=== PATIENT | male | born 1945 | race Caucasian/White ===

== ENCOUNTER → 2016-11-08 | Outpatient (CLI) | payer BC ==
[~2016-11-08] MED LIST: ASPI81TA21 PO; ATOR-24 PO; CALC500C3 PO; CALCTAB5 PO; CHOL100010 PO; DIPH-437 PO; DOCU100C31 PO; GABA-112 PO; ISOS30TA3 PO; METO25TA56 PO; MISCCAP80 PO; MULT-506 PO; NICO14DI18 TD; NITR0.4S UT; OXYC-57 PO; POLY335019 PO; VITACAP26 PO
== END | disposition home or self-care (01) ==
LOC: C.RDSM 08:00
PROVIDERS: ATTEND Physical Medicine & Rehabilitation Sports Medicine
DX: M25.561 Pain in right knee (principal)

== ENCOUNTER → 2017-06-11 | Outpatient (CLI) | payer BC ==
[~2017-06-11] MED LIST changes: -GABA-112 PO
--- NOTE | 2017-06-11 14:21 | DIAGNOSTIC IMAGING REPORT ---
CT SCAN OF THE PARANASAL SINUSES CLINICAL HISTORY: Headache. Sinus pain. COMPARISON STUDY: CT scan of the paranasal sinuses dated 08/24/2013. TECHNIQUE: High-resolution CT scan of the paranasal sinuses is performed. Images are reviewed in the axial, sagittal, and coronal planes. IV contrast was not administered for this examination. A dose lowering technique was utilized adhering to the principles of ALARA. CT DOSE: 660.33 mGy.cm FINDINGS: Maxillary antra: Clear bilaterally. Anterior ethmoid sinuses: Trace mucosal thickening is seen bilaterally. Posterior ethmoid sinuses: Clear. Sphenoid sinuses: Clear. Frontal sinuses: Trace mucosal thickening is seen bilaterally. Ostiomeatal complexes: Patent bilaterally. Frontoethmoidal and sphenoethmoidal recesses: Patent bilaterally. Carotid arteries: The carotid arteries are protuberant but covered. There are no septal attachments. Ethmoid roofs: The ethmoid roofs are symmetric. Nasal turbinates: There is mild rachel bullosa of the middle nasal turbinates. Nasal septum: There is mild leftward deviation of the bony nasal septum. Optic nerves: Covered. Orbits: The bony orbits are intact. Orbital contents are normal in appearance noting bilateral ocular lens implants.. Calvarium: The imaged calvarium is normal in appearance Mastoid air cells: There is a trace right mastoid effusion. The left mastoid air cells are clear. Brain parenchyma: There is age-related involutional change noting moderate subcortical and periventricular microangiopathic disease. There is significant parenchymal abnormality identified in the right temporal lobe with presumed encephalomalacia. There are foci of curvilinear hyperdensity, likely representing laminar necrosis. IMPRESSION: 1. No significant paranasal sinus disease. See detailed discussion above. 2. There is significant parenchymal abnormality identified in the right temporal lobe. 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 Blood is considered unlikely. Correlation with the patient's medical history at any interval imaging studies will be required. If further assessment is warranted MRI would be appropriate. Electronically signed by: Viktor Bundy M.D. 06/11/2017 2:20 PM Dictated Date/Time: 06/11/2017 2:03 PM
== END | disposition home or self-care (01) ==
LOC: C.CTS 13:44
PROVIDERS: ATTEND Student in an Organized Health Care Education/Training Program
DX: J34.89 Other specified disorders of nose and nasal sinuses (principal); R51 Headache

== ENCOUNTER → 2017-07-01 | Outpatient (CLI) | payer BC ==
[2017-07-01 13:31] LABS: BASO % 0.3 %; BASO ABS # 0.02 K/uL (0-0.2); COMPLETE YES; EOS % 1.1 %; HEMATOCRIT 43.3 % (42-52); IG% 0.3 %; LYMPH % 24.4 %; MEAN CORPUSCULAR HEMOGLOBIN 31.8 pg (25-34); MEAN CORPUSCULAR HGB CONC 33.5 g/dl (32-36); NEUT % 64.9 %; PLATELET COUNT 169 K/uL (130-400); RED BLOOD COUNT 4.56 M/uL (4.7-6.1); WHITE BLOOD COUNT 6.98 K/uL (4.8-10.8)
[2017-07-01 13:57] LABS: ALT/SGPT 39 U/L (12-78); AST/SGOT 23 U/L (15-37); BLOOD UREA NITROGEN 18 mg/dl (7-18); BUN/CREATININE RATIO 13.6 (10-20); CARBON DIOXIDE 31 mmol/L (21-32); CHLORIDE 104 mmol/L (98-107); GLUCOSE 77 mg/dl (70-99); POTASSIUM 4.4 mmol/L (3.5-5.1); SODIUM 139 mmol/L (136-145)
[2017-07-01 14:08] LABS: ALB/GLOB RATIO 1.2 (0.9-2); ALKALINE PHOSPHATASE 92 U/L (45-117)
[2017-07-01 14:16] LABS: LYME DISEASE AB IGG NEG (NEG); LYME DISEASE AB IGM NEG (NEG)
== END | disposition home or self-care (01) ==
LOC: C.LABBC 11:18
PROVIDERS: ATTEND Physician Assistant
DX: R90.89 Other abnormal findings on diagnostic imaging of central nervous system (principal)

== ENCOUNTER → 2017-07-08 | Outpatient (CLI) | payer BC ==
[~2017-07-08] MED LIST changes: +OPTIRAY 320 IV PRN
--- NOTE | 2017-07-08 10:50 | DIAGNOSTIC IMAGING REPORT ---
HEAD COMBO HISTORY: 71 years-old Male R90.[address] of [id number] follow-up study to assess calcification of the right temporal lobe COMPARISON: CT maxillofacial study 06/11/2017, 08/24/2013 TECHNIQUE: Multiple axial CT images of the head were obtained both with and without the use of 95 mL Optiray 320. A dose lowering technique was used consistent with the principals of CHERIE. FINDINGS: There is curvilinear calcification within the right temporal lobe, 2.0 x 2.4 cm with moderate to extensive associated low-attenuation within the right temporal lobe suggesting vasogenic edema. There is no definite associated enhancing mass within this distribution. There is mild cerebral atrophy with ill-defined areas of low attenuation within the periventricular white matter suggesting chronic microvascular ischemic changes. No midline shift, hydrocephalus or territorial ischemia. Bones are intact. The mastoid air cells and middle ear cavities are clear. Soft tissues are unremarkable. Orbits are symmetric. IMPRESSION: 1. Focal curvilinear calcification of the right temporal lobe as above with moderate to extensive associated low attenuation within the right temporal lobe suggests associated vasogenic edema, very suspicious for underlying mass such as a glial neoplasm which does not demonstrate associated significant enhancement. Recommend further evaluation with MRI if clinically able. 2. No midline shift or intracranial hemorrhage identified. 3. Mild atrophy with background chronic microvascular ischemic changes. The above report was generated using voice recognition software. It may contain grammatical, syntax or spelling errors. Electronically signed by: Nomi Nance M.D. 07/08/2017 10:49 AM Dictated Date/Time: 07/08/2017 10:31 AM
== END | disposition home or self-care (01) ==
LOC: C.CTS 10:10
PROVIDERS: ATTEND Physician Assistant
DX: R90.89 Other abnormal findings on diagnostic imaging of central nervous system (principal); G93.89 Other specified disorders of brain

== ENCOUNTER → 2017-09-03 | Outpatient (CLI) | payer BC ==
[~2017-09-03] MED LIST changes: -OPTIRAY 320 IV PRN
== END | disposition home or self-care (01) ==
LOC: C.LAB 13:12
PROVIDERS: ATTEND Urology
DX: N40.1 Benign prostatic hyperplasia with lower urinary tract symptoms (principal)

== ENCOUNTER → 2017-10-03 | Day surgery (SDC) | payer BC ==
--- NOTE | 2017-09-30 11:17 | NUR ---
left generic message for patient to call back.
--- NOTE | 2017-09-30 12:47 | NUR ---
Pt is on 81mg asiprin and celebrex, dr. jacobs and dr. fitzpatrick aware pt will only be holding these medication x 3 days and is ok with it. Pt aware not to take these medications. 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 Pt verbalized understanding. Had Myelogram done before. + hardware in back from a bad surgery in [place], according to patient. Addendum: 10/01/17 at 1139 by Evelyne Escobedo RN pt aware to be npo x 2 hours prior to procedure. okay to take am medication with sip of water.
[~2017-10-03] VITALS: Ht 172.7 cm; Wt 71.5 kg
[2017-10-03] VITALS (8 sets, daily range): BP systolic 92–116; BP diastolic 63–73; PULSE 60–68; TEMP 36.8–36.9; O2SAT 96–100; Ht 172.7 cm; Wt 71.5 kg
[~2017-10-03] MED LIST changes: +ACET-1311 PO; +ACETAMINOPHEN 500 MG TAB PO PRN; +ANT25 PO; +ASCO1CAP3 PO; +ASPI-319 PO; -ASPI81TA21 PO; +CHOL1000 PO; +CLB/200 PO; +DXM/4 PO; +FINA5TAB PO; +MECL1TAB40 PO; +MEDMARIJ PO; +ONDA4TAB9 PO; +OXYC-609 PO; +RANI300T PO; +RXC5 PO; +SENN-61 PO; +TOPI100T20 PO; +TOPI25CA2 PO; +TOPI50TA24 PO; +TURM1CAP4 PO; +TYLOTC500 PO
--- NOTE | 2017-10-03 09:06 | Discharge Instructions ---
Discharge Instructions Procedure Procedure Date: Oct 03, 2017. Reason for visit: Lumbar Stenosis. Discharge Discharge Date: Oct 03, 2017. Discharge Diagnosis: Lumbar stenosis. Difficulty with ambulation Instructions Activity Recommendations: 1 Day-May resume regular activity, 48 Hours of decreased exertion, 1 Day with no exercise/sex/sports, 1 Day with no driving/ machine use Return to School/Work: limitations (light activity x 48 hours) Recommended Home Diet: Resume Previous Diet Provider Instructions: Fluoroscopic guided lumbar puncture was performed prior to CT myelogram of the lumbar spine. The procedure was well tolerated and without immediate complication. ACTIVITY RECOMMENDATIONS: * Rest today. * Resume regular activity in one day. MEDICATIONS: * May take Tylenol or Ibuprofen as needed for pain. DIET: * Resume previous diet. SPECIAL CARE INSTRUCTIONS: Call your doctor if: * Temperature above 101 degrees F. * Pain not relieved by pain medicine ordered. * Increased drainage or redness from incision. * Notify your doctor with any questions or concerns. Call your doctor or go to the nearest Emergency Department if you experience: * Increased chest pain or shortness of breath. FOLLOW UP VISIT: Follow-up with Referring Physician as scheduled. Allergies Coded Allergies: Lactose Intolerance (GI) (Verified Allergy, Intermediate, GI UPSET, ) Rosuvastatin (Verified Adverse Reaction, Unknown, muscle aches, 10/03/17) [place] Recommendations: Call your doctor if: * Temperature above 101 degrees * Pain not relieved by pain medicine ordered * There is increased drainage or redness from any incision * You have any unanswered questions or concerns. Your Doctors Instructions noted above were prepared by provider Viktor Bundy. Patient Signature Section: Patient Instructions Signature Page Justino Brenna Patient (or Guardian) Signature/Date: I have read and understand the instructions given to me by my caregivers. Caregiver/RN/Doctor Signature/Date: The above-named patient and/or guardian has received patient instructions on this date. + Original Patient Signature Page (only) stays with chart. Please make copy for patient.
--- NOTE | 2017-10-03 09:13 | DIAGNOSTIC IMAGING REPORT ---
FLUOROSCOPIC GUIDED LUMBAR PUNCTURE CLINICAL HISTORY: Lumbar stenosis. Difficulty with ambulation. Injection for CT myelogram. PROCEDURE: The risks, benefits, and alternatives to the procedure is discussed with the patient who voiced understanding. Written informed consent was obtained. The patient was placed prone on the fluoroscopy table. The lower back was prepped and draped in the usual sterile fashion. 1% lidocaine was used for local anesthesia. A 22-gauge spinal needle was initially inserted into the L4 laminectomy space with cerebrospinal fluid return. Injection was attempted and likely epidural. The needle was repositioned to the L3 laminectomy space, and intrathecal positioning was again confirmed by return of cerebrospinal fluid. Approximately 20 cc of Isovue-200 was then injected into the thecal sac under fluoroscopic guidance. The patient tolerated the procedure well. There were no immediate complications. The patient was then transported to CT for CT myelogram and will be observed in the medical treatment unit prior to discharge. Fluoroscopy time: 0.7 minutes. IMPRESSION: Fluoroscopic guided lumbar puncture with injection of iodinated contrast for CT myelogram as above. There were no immediate complications. Electronically signed by: Viktor Bundy M.D. 10/03/2017 9:12 AM Dictated Date/Time: 10/03/2017 9:10 AM
--- NOTE | 2017-10-03 10:10 | DIAGNOSTIC IMAGING REPORT ---
CT MYELOGRAM OF THE LUMBAR SPINE CLINICAL HISTORY: Chronic low back pain. Difficulty with ambulation. Spinal stenosis. COMPARISON STUDY: CT scan of the lumbar spine dated 03/07/2016. TECHNIQUE: Following the intrathecal injection of iodinated contrast, CT myelogram of the lumbar spine is performed from the lower thoracic spine to the sacrum. Images are reviewed in the axial, sagittal, and coronal planes. IV contrast was not utilized. 3-D reformats are created and assessed. Examination is degraded by streak artifact from metallic orthopedic spinal hardware. A dose lowering technique was utilized adhering to the principles of ALARA. CT DOSE: 712.17 mGy.cm FINDINGS: Lumbar spine: The skeletal structures are osteopenic. There is no evidence of acute fracture. Vertebral body height and alignment are maintained throughout the lumbar spine. There is mild to moderate lumbar dextrocurvature centered at L3. Anterior and lateral marginal osteophytes are seen throughout. Again seen are changes from laminectomy from L2 through S1. There has been interval placement of interpedicular screws at these levels. The orthopedic hardware appears intact. There is significant lucency around the interpedicular screws of S1 suggesting loosening. The transverse processes are intact. There is no spondylolysis. No lytic or blastic lesion is seen. Intervertebral discs: There is advanced disc space narrowing with near-complete loss of the disc space at L2-L3, L3-L4, and L4-L5. A small volume of injected contrast is present within the L4-L5 disc space. Moderate disc space narrowing seen at T12-L1 and L1-L2. Minimal disc space narrowing is seen at L5-S1. Spinal cord: The visualized spinal cord is normal in morphology. The conus medullaris terminates at the level of L1. The nerve roots of the cauda equina are normal in morphology. T12-L1: The central canal and neural foramina are patent. L1-L2: There is a posterior disc osteophyte complex. There is no significant central canal stenosis at this level. The minimum AP canal diameter measures 11.5 mm. The neural foramina are patent. L2-L3: The central canal is widely patent. Facet arthropathy and osteophyte formation causes moderate left neural foraminal stenosis. L3-L4: The central canal is widely patent. Facet arthropathy and marginal osteophytes cause moderate to severe left neural foraminal stenosis. The right neural foramen appears clear. A minimal posterior disc osteophyte complex is of no confluence. L4-L5: The central canal is widely patent. Facet arthropathy and marginal osteophytes cause severe left and [id number] right neural foraminal stenosis. L5-S1: The central canal and neural foramina are patent. Sacrum: The partially visualized sacrum and bony pelvis appear intact. Soft tissues: There is postoperative change within the paraspinous soft tissues. Small foci of gas within the posterior soft tissues are likely related to the procedure. There is advanced atherosclerotic calcification of the abdominal aorta. Retroperitoneal structures are normal as imaged. Sigmoid diverticulosis is partially visualized. IMPRESSION: 1. There has been interval placement of interpedicular screws from L2-S1. The orthopedic hardware appears intact. There is lucency around the S1 screws bilaterally suggesting loosening. 2. No acute bony abnormality is identified. 3. The central canal is widely patent throughout the lumbar region. 4. Multilevel neural foraminal stenosis, left greater than right as detailed above. 5. Scoliosis. Dictated: 10/03/2017 9:25 AM Transcribed: 10/03/2017 10:10 AM [facility] Electronically signed by: Viktor Bundy M.D. 10/03/2017 10:58 AM Dictated Date/Time: 10/03/2017 9:25 AM
== END | disposition home or self-care (01) ==
LOC: C.ACU 07:18
PROVIDERS: ATTEND Orthopaedic Surgery Orthopaedic Surgery of the Spine
DX: M48.061 Spinal stenosis, lumbar region without neurogenic claudication (principal)

== ENCOUNTER → 2017-10-17 | Outpatient (CLI) | payer BC ==
[~2017-10-17] MED LIST changes: -ACET-1311 PO; -ACETAMINOPHEN 500 MG TAB PO PRN; -ANT25 PO; -ASCO1CAP3 PO; -ASPI-319 PO; +ASPI81TA21 PO; -CHOL1000 PO; -CLB/200 PO; -DXM/4 PO; -FINA5TAB PO; -MECL1TAB40 PO; -MEDMARIJ PO; -ONDA4TAB9 PO; -OXYC-609 PO; -RANI300T PO; -RXC5 PO; -SENN-61 PO; -TOPI100T20 PO; -TOPI25CA2 PO; -TOPI50TA24 PO; -TURM1CAP4 PO; -TYLOTC500 PO
--- NOTE | 2017-10-17 13:26 | DIAGNOSTIC IMAGING REPORT ---
CT SCAN OF THE THORACIC SPINE WITHOUT IV CONTRAST CLINICAL HISTORY: Thoracic radiculopathy. COMPARISON STUDY: No priors. TECHNIQUE: CT scan of the thoracic spine is performed from the lower cervical spine to the lumbar spine. Images are reviewed in the axial, sagittal, and coronal planes. IV contrast was not administered for this examination. A dose lowering technique was utilized adhering to the principles of ALARA. CT DOSE: 757.14 mGy.cm FINDINGS: The skeletal structures are osteopenic. There is no evidence of fracture or malalignment involving the thoracic spine. Vertebral body height and alignment are maintained. There is mild straightening of the thoracic kyphosis with reversal centered at T9-T10. Small anterior osteophytes are seen throughout. The transverse and spinous processes are intact. There is no lytic or blastic lesion identified. There is moderate to advanced disc space narrowing with endplate sclerosis seen at T7-T8. Moderate disc space narrowing is also seen at C7-T1 and T1-T2. Only mild disc space narrowing is seen at the remaining thoracic levels. Posterior disc osteophyte complexes are seen at T5-T6, T7-T8, T8-T9, T9-T10, T10-T11, and T11-T12. There is no evidence of large disc herniation or high-grade central canal stenosis. Bilateral neural foraminal stenosis is suggested at T10 and T11. No significant neural foraminal stenosis is suggested at the remaining thoracic levels. The paraspinous soft tissues are within normal limits. There are calcified mediastinal lymph nodes. Emphysema is noted. Atelectasis versus scarring is seen at both lung bases. There are scattered calcified granulomas. Cardiac pacemaker leads are noted. IMPRESSION: 1. No acute bony abnormality is seen involving the thoracic spine. 2. Osteopenia and mild spondylotic change as above. 3. There is no evidence of high-grade central canal stenosis involving the thoracic spine. 4. Emphysema. 5. Additional findings as above. Dictated: 10/17/2017 12:30 PM Transcribed: 10/17/2017 1:26 PM [facility] Electronically signed by: Viktor Bundy M.D. 10/17/2017 1:27 PM Dictated Date/Time: 10/17/2017 12:30 PM
== END | disposition home or self-care (01) ==
LOC: C.CTS 12:11
PROVIDERS: ATTEND Orthopaedic Surgery Orthopaedic Surgery of the Spine
DX: M54.14 Radiculopathy, thoracic region (principal); M85.88 Other specified disorders of bone density and structure, other site; J43.9 Emphysema, unspecified

== ENCOUNTER 2017-11-28 08:05 | Inpatient (IN) | payer BC, OTHER ==
[2017-11-10 10:35] VITALS: BMI 24.0
--- NOTE | 2017-11-10 11:11 | PAT Medication Instructions ---
Service Date Nov 10, 2017. Current Home Medication List Acetaminophen (Tylenol), 500 MG PO PRN Ascorbic Acid (Vitamin C), 500 MG PO QAM PRN for RN Aspirin Enteric Coated (Ecotrin Or Generic), 81 MG PO QAM Atorvastatin (Lipitor), 20 MG PO 3XWEEK Calcium Carbonate (Tums), 2 TAB PO PRN Celecoxib (CeleBREX), 200 MG PO NOON Cholecalciferol (Vitamin D3), 1 TAB PO QPM Diphenhydramine-Acetaminophen (Tylenol Pm), 1 TAB PO HS PRN for RN Isosorbide Mononitrate Ext Rel (Imdur Ext Rel), 30 MG PO QAM Meclizine HCl (Meclizine HCl), 1 TAB PO PRN Metoprolol Tartrate (Lopressor) (Lopressor), 25 MG PO BID Multivitamin (Multivitamin), 1 TAB PO QPM Oxycodone/Acetaminophen 5MG/325MG (Percocet 5MG/325MG), 1 TABLET PO Q6H PRN for Pain Polyethylene Glycol 3350 (Miralax), 17 GM PO QPM Probiotic Product (Probiotic), 1 TAB PO QAM Senna (Senokot), 1 TAB PO QPM Topiramate (Topiramate), 50 MG PO QAM Topiramate (Topamax), 100 MG PO QPM Medication Instructions For Your Scheduled Surgery -Contact your surgeon for instructions for: Celecoxib (CeleBREX), 200 MG PO NOON - Hold the following medications the morning of surgery: Probiotic Product (Probiotic), 1 TAB PO QAM Calcium Carbonate (Tums), 2 TAB PO PRN - Take the following medications the morning of surgery with a sip of water: Topiramate (Topiramate), 50 MG PO QAM Isosorbide Mononitrate Ext Rel (Imdur Ext Rel), 30 MG PO QAM Aspirin Enteric Coated (Ecotrin Or Generic), 81 MG PO QAM Atorvastatin (Lipitor), 20 MG PO 3XWEEK Oxycodone/Acetaminophen 5MG/325MG (Percocet 5MG/325MG), 1 TABLET PO Q6H PRN for Pain (if needed, can be taken up to four hours before surgery) Meclizine HCl (Meclizine HCl), 1 TAB PO PRN (if needed) Acetaminophen (Tylenol), 500 MG PO PRN (if needed, can be taken up to four hours before surgery) Metoprolol Tartrate (Lopressor) (Lopressor), 25 MG PO BID - Take the following medications as scheduled the night before surgery: Topiramate (Topamax), 100 MG PO QPM Senna (Senokot), 1 TAB PO QPM Polyethylene Glycol 3350 (Miralax), 17 GM PO QPM Meclizine HCl (Meclizine HCl), 1 TAB PO PRN (if needed) Metoprolol Tartrate (Lopressor) (Lopressor), 25 MG PO BID Multivitamin (Multivitamin), 1 TAB PO QPM Oxycodone/Acetaminophen 5MG/325MG (Percocet 5MG/325MG), 1 TABLET PO Q6H PRN for Pain (if needed) Diphenhydramine-Acetaminophen (Tylenol Pm), 1 TAB PO HS PRN for RN (if needed) Cholecalciferol (Vitamin D3), 1 TAB PO QPM Calcium Carbonate (Tums), 2 TAB PO PRN (if needed) Acetaminophen (Tylenol), 500 MG PO PRN (if needed) Ascorbic Acid (Vitamin C), 500 MG PO QAM PRN for RN (if needed) If you have any questions please call us at [phone] or [phone] or [phone]
[2017-11-10 11:46] LABS: BASO % 0.6 %; BASO ABS # 0.03 K/uL (0-0.2); EOS % 0.7 %; EOS ABS # 0.04 K/uL (0-0.5); HEMATOCRIT 39.5 % (42-52); HEMOGLOBIN 13.6 g/dL (14.0-18.0); IG# 0.01 K/uL (0.00-0.02); LYMPH ABS # 1.51 K/uL (1.2-3.4); MEAN CELL VOLUME 93.6 fL (80-100); MEAN CORPUSCULAR HEMOGLOBIN 32.2 pg (25-34); MEAN CORPUSCULAR HGB CONC 34.4 g/dl (32-36); MEAN PLATELET VOLUME 10.5 fL (7.4-10.4); MONO % 7.6 %; MONO ABS # 0.41 K/uL (0.11-0.59); NEUT % 62.9 %; NEUT ABS # 3.39 K/uL (1.4-6.5); PLATELET COUNT 166 K/uL (130-400); RED CELL DISTRIBUTION WIDTH CV 13.7 % (11.5-14.5); RED CELL DISTRIBUTION WIDTH SD 46.5 fL (36.4-46.3); WHITE BLOOD COUNT 5.39 K/uL (4.8-10.8)
--- NOTE | 2017-11-10 12:30 | DIAGNOSTIC IMAGING REPORT ---
TWO VIEW CHEST CLINICAL HISTORY: Preoperative examination. FINDINGS: PA and lateral chest radiographs are compared to study dated 10/15/2015. Correlation is made with CT scan of the thoracic spine dated 10/17/2017. A 2-lead cardiac pacemaker is unchanged in position and partially obscures the left upper chest. The cardiomediastinal silhouette is unremarkable. There is atherosclerotic calcification of the thoracic aorta. The pulmonary vasculature is noncongested. Enlargement of the the central pulmonary arteries suggests pulmonary artery hypertension. There are calcified mediastinal and hilar lymph nodes. Emphysema and chronic interstitial thickening are similar to previous. Scattered calcified granulomas are again noted. The largest present the right lung base. No airspace consolidation or pleural effusion is identified. There is no pneumothorax. The skeletal structures are osteopenic. Degenerative change is noted in the thoracic spine. Fusion hardware is partially imaged in the upper lumbar region. Cholecystectomy clips are noted. IMPRESSION: Emphysematous change and cardiac pacemaker. No acute cardiopulmonary abnormality is seen. Electronically signed by: Viktor Bundy M.D. 11/10/2017 12:28 PM Dictated Date/Time: 11/10/2017 12:26 PM
[2017-11-10 14:34] LABS: CALCIUM 9.2 mg/dl (8.5-10.1); CREATININE 1.39 mg/dl (0.60-1.40); POTASSIUM 4.4 mmol/L (3.5-5.1)
[2017-11-28] VITALS (8 sets, daily range): BP systolic 111–146; BP diastolic 64–93; PULSE 70–100; TEMP 36.2–36.7; O2SAT 96–100; Ht 172.7 cm; Wt 74.0 kg
[~2017-11-28] VITALS: Ht 172.7 cm; Wt 74.0 kg
[~2017-11-28 08:05] MED LIST changes: +ASCO1CAP3 PO; -CALCTAB5 PO; +CEFAZOLIN 1000MG IV PUSH 7.5 ML IV SCH; +CHOL1000 PO; -CHOL100010 PO; +CLB/200 PO; -DOCU100C31 PO; +LACTATED RINGER'S 1000ML 1,000 ML IV SCH; +MECL1TAB40 PO; -NICO14DI18 TD; -NITR0.4S UT; +SENN-61 PO; +TOPI100T20 PO; +TOPI25CA2 PO; +TYLOTC500 PO; -VITACAP26 PO
[2017-11-28] MEDS ORDERED: MIDAZOLAM HCL 1 MG/ML 2ML VIAL ONE (10:22)
[2017-11-28] MEDS ORDERED: FENTANYL CITRATE INJ 50 MCG/1 ML 2 ML VIAL ONE ×3 (10:22→13:16)
[2017-11-28] MEDS ORDERED: ONDANSETRON INJ 2 MG/ML 2 ML VIAL IV PRN ×2 (10:45→13:45)
[2017-11-28] MEDS ORDERED: ATROPINE SULFATE 0.1 MG/ML 5ML SYR IV PRN (10:45)
[2017-11-28] MEDS ORDERED: LABETALOL HCL IV 5 MG/ML 20ML IV PRN (10:45)
[2017-11-28] MEDS ORDERED: HYDROmorphone INJ 2 MG/ML SYR/VIAL IV PRN (10:45)
--- NOTE | 2017-11-28 10:45 | History & Physical Bridge Note ---
H&P Re-Evaluation Bridge Note: I have examined the patient, reviewed the History & Physical and in the interval since the performance of the History & Physical I have noted the following changes of clinical significance: No changes noted
--- NOTE | 2017-11-28 10:49 | History and Physical ---
History & Physical Date Nov 28, 2017. Chief Complaint Back and leg pain History of Present Illness The patient is a 72 year old male with complaints of back and leg pain Past Medical/Surgical History Medical Problems: (1) Diverticulosis Colon (W/O Ment Of Hemorrhage) (2) Esophageal Reflux (3) Hyperlipidemia Nec/Nos (4) Hypertrophy (Benign) Of Prostate W/O Urinary Obst & Oth Luts (5) Lumbar stenosis with neurogenic claudication (6) Osteoarthros Nos-Ankle (7) Osteoarthros Nos-Unspec (8) Pacemaker (9) Sciatica (10) Syncope Surgical Problems: (1) History of back surgery Additional History Hepatic Disease: No Endocrine Disorder: No Kidney Disease: No Hypertension: Yes Heart Disease: No Bleeding Tendencies: No Infectious Diseases: No Allergies Coded Allergies: Lactose Intolerance (GI) (Verified Allergy, Intermediate, GI UPSET, ) Rosuvastatin (Verified Adverse Reaction, Unknown, muscle aches, 11/28/17) Home Medications Scheduled Acetaminophen (Tylenol), 500 MG PO PRN Aspirin Enteric Coated (Ecotrin Or Generic), 81 MG PO QAM Atorvastatin (Lipitor), 20 MG PO 3XWEEK Calcium Carbonate (Tums), 2 TAB PO PRN Celecoxib (CeleBREX), 200 MG PO NOON Cholecalciferol (Vitamin D3), 1 TAB PO QPM Isosorbide Mononitrate Ext Rel (Imdur Ext Rel), 30 MG PO QAM Meclizine HCl (Meclizine HCl), 1 TAB PO PRN Metoprolol Tartrate (Lopressor) (Lopressor), 25 MG PO BID Multivitamin (Multivitamin), 1 TAB PO QPM Polyethylene Glycol 3350 (Miralax), 17 GM PO QPM Probiotic Product (Probiotic), 1 TAB PO QAM Senna (Senokot), 1 TAB PO QPM Topiramate (Topiramate), 50 MG PO QAM Topiramate (Topamax), 100 MG PO QPM Scheduled PRN Ascorbic Acid (Vitamin C), 500 MG PO QAM PRN for RN Diphenhydramine-Acetaminophen (Tylenol Pm), 1 TAB PO HS PRN for RN Oxycodone/Acetaminophen 5MG/325MG (Percocet 5MG/325MG), 1 TABLET PO Q6H PRN for Pain Physical Examination Skin: warm/dry, no rash Eyes: normal inspection, EOMI, sclerae normal ENT: normal ENT inspection, pharynx normal Head: normocephalic, atraumatic Neck: supple, no adenopathy, trachea midline Respiratory/Chest: lungs clear, normal breath sounds, no respiratory distress Cardiovascular: regular rate, rhythm, no edema, no murmur Abdomen / GI: normal bowel sounds, non tender Back: normal inspection Extremities: normal inspection, normal range of motion Neurologic/Psych: no motor/sensory deficits, alert, normal reflexes, oriented x 3 Diagnosis 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
[2017-11-28] MEDS ORDERED: BACITRACIN 50000 UNIT VIAL ONE (10:55)
[2017-11-28] MEDS ORDERED: BUPIVACAINE/EPINEPHRINE 0.5% MPF 1:200,000 30 ML VIAL ONE (10:55)
[2017-11-28] MEDS ORDERED: HYDROmorphone INJ 2 MG/ML SYR/VIAL ONE ×2 (11:45→13:32)
[2017-11-28] MEDS ORDERED: LIDOCAINE HCL 2% 2 ML VIAL (20MG/ML) ONE (11:47)
[2017-11-28] MEDS ORDERED: DEXAMETHASONE SOD INJ 4 MG/ML VIAL ONE (11:47)
[2017-11-28] MEDS ORDERED: ONDANSETRON INJ 2 MG/ML 2 ML VIAL ONE ×2 (11:47→13:33)
[2017-11-28] MEDS ORDERED: EpHEDrine SULFATE 50MG/5ML SYR ONE ×2 (11:47→13:33)
[2017-11-28] MEDS ORDERED: PROPOFOL IV EMULSION 10 MG/ML 20 ML VIAL IV ONE (11:47)
[2017-11-28] MEDS ORDERED: PHENYLEPHRINE 100MCG/ML 5ML SYR ONE ×2 (11:47→13:33)
[2017-11-28] MEDS ORDERED: FLOSEAL HEMOSTATIC MATRIX 10ML TOP ONE (13:30)
[2017-11-28] MEDS ORDERED: GLYCOPYRROLATE INJ 0.2 MG/ML VIAL ONE (13:33)
[2017-11-28] MEDS ORDERED: NEOSTIGMINE METHYLSULFATE 1 MG/ML 10ML VIAL ONE (13:33)
[2017-11-28] MEDS ORDERED: SODIUM CHLORIDE 0.9% 1000ML 1,000 ML IV SCH (13:33)
--- NOTE | 2017-11-28 13:33 | [facility] Operative Report ---
Operative Report Operative Date Nov 28, 2017. 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 #2 expiration of fusion L2 to S1. #3 posterior spinal fusion L4 5 L5-S1. #4 bilateral SI joint fusions. #5 placement posterior segmental instrumentation L4 to S1 with bilateral iliac bolts. #6 placement of locally harvested morcellized autograft in the posterior lateral gutters. #7 placement infuse collagen sponge combined with Master graft the posterior gutters and bilateral SI joints. Surgeon Dr. Brennan Alberto [facility] Specialist Surgeon(s) Alex Marinelli PA-C Estimated Blood Loss 150mL Findings Findings consistent with diagnosis Specimens Tissue Examination: A. Explanted hardware; lumbar spine Anesthesia Type General Description of Procedure Patient was met with preoperatively case discussed all questions addressed. After informed consent obtained patient was taken to the operative suite underwent intubation and placed in a prone position the Gerard table on top of the Nolan frame. All bony prominences were well-padded the eyes inspected to ensure no external pressure placed upon them. This point the lumbar spine was prepped and draped in the normal sterile fashion. Sharp dissection with the assistance of Bovie cautery was performed onto an exposing the instrumentation from L2 to S1 bilaterally. I then proceeded remove the hardware bilaterally. This obvious loosening of the S1 screws bilaterally. Consistent with a nonunion at this level. All other levels appear well stabilized infuse. Then placed pedicle screws on the right L4 L5 S1 levels and on the left L5 and S1 levels. This included placement of bilateral iliac bolts. Process rods were then locked into position. The transverse processes of L4-L5 sacroiliac and the bilateral SI joints burred out to subcortical bleeding bone. Infuse collagen sponge mass graft locally harvested morcellized autograft was placed in the SI joints and posterior gutters. 15 round PHILLIP drain inserted. Incision was then closed with 1 Vicryl in the fascia 2-0 Vicryl subcutaneous tensely 4-0 Monocryl for final skin closure Steri-Strips sterile dressings placed. Patient with continued PACU stable condition. Please note Alex Marinelli was present at the entire procedure involved in patient positioning complex portions of the surgery and final skin closure. I attest to the content of the Intraoperative Record and any orders documented therein. Any exceptions are noted below.
[2017-11-28] MEDS ORDERED: MAGNESIUM HYDROXIDE SUSP 30 ML UDC PO PRN (13:45)
[2017-11-28] MEDS ORDERED: DO NOT ADMINISTER FLU VACCINE PRN (13:45)
[2017-11-28] MEDS ORDERED: BISACODYL 10 MG SUPP PR PRN (13:45)
[2017-11-28] MEDS ORDERED: ALUMINUM/MAGNESIUM SUSP 30 ML UDC PO PRN (13:45)
[2017-11-28] MEDS ORDERED: METOCLOPRAMIDE HCL INJ 5 MG/ML 2 ML VIAL IV PRN (13:45)
[2017-11-28] MEDS ORDERED: hydrOXYzine HCL 25 MG TAB PO PRN (13:45)
[2017-11-28] MEDS ORDERED: ACETAMINOPHEN IV 100 ML IV PRN (13:45)
[2017-11-28] MEDS ORDERED: LORAZEPAM INJ 0.5 MG in SYRINGE 0 ML IV PRN (13:45)
[2017-11-28] MEDS ORDERED: PROMETHAZINE HCL INJ 12.5 MG in SODIUM CHLORIDE 0.9% 50ML 50 ML IV PRN (13:45)
[2017-11-28] MEDS ORDERED: FAMOTIDINE 20 MG TAB PO PRN (13:45)
[2017-11-28] MEDS ORDERED: SOD PHOSPHATE/SOD BIPHOSPHATE ENEMA 132 ML BTL PR PRN (13:45)
[2017-11-28] MEDS ORDERED: DO NOT ADMINISTER PNEUMOCOCCAL VACCINE PRN (13:45)
[2017-11-28] MEDS ORDERED: LORAZEPAM 0.5 MG TAB PO PRN (13:45)
[2017-11-28] MEDS ORDERED: NALOXONE HCL 0.4 MG/1 ML VIAL/CARP IV PRN ×2 (13:45)
[2017-11-28] MEDS ORDERED: ACETAMINOPHEN 500 MG TAB PO PRN (13:45)
--- NOTE | 2017-11-28 13:55 | DIAGNOSTIC IMAGING REPORT ---
INTRAOPERATIVE RADIOGRAPHS CLINICAL HISTORY: L4-S1 spinal fusion with iliac bolt placement. Fluoroscopy time: 15 seconds. FINDINGS: 4 spot fluoroscopic views of the lumbar spine are presented. There has been laminectomy and posterior fusion from L4 to S1. Interpedicular screws are present at all levels, only on the right at L4. Iliac bolts are in place. The orthopedic hardware appears intact. IMPRESSION: Intraoperative images from L4 -S1 spinal fusion as above. Electronically signed by: Viktor Bundy M.D. 11/28/2017 1:53 PM Dictated Date/Time: 11/28/2017 1:52 PM
[2017-11-28] MEDS ORDERED: HYDROmorphone HCL 0.5MG/ML 50 ML CASSETTE ONE (14:03)
--- NOTE | 2017-11-28 15:08 | Anesthesiology Progress Note ---
Anesthesia Post Op Note Date & Time Nov 28, 2017 at 15:07 Vital Signs Pain Intensity: 2 Vital Signs Past 12 Hours Date Time Temp Pulse Resp B/P (MAP) Pulse Ox O2 Delivery O2 Flow Rate FiO2 11/28/17 14:56 67 17 112/61 100 11/28/17 14:56 36.5 68 17 11/28/17 14:51 70 15 11/28/17 14:51 69 15 108/59 100 11/28/17 14:46 73 15 11/28/17 14:46 72 15 113/59 100 11/28/17 14:41 75 14 113/62 11/28/17 14:41 14 11/28/17 14:37 113/59 11/28/17 14:36 71 16 100 11/28/17 14:36 71 16 11/28/17 14:31 74 14 112/61 100 11/28/17 14:31 74 14 11/28/17 14:26 78 10 11/28/17 14:26 77 10 118/63 100 11/28/17 14:21 75 18 122/65 100 11/28/17 14:21 76 18 11/28/17 14:16 77 12 11/28/17 14:16 77 12 108/65 100 11/28/17 14:11 80 15 118/80 100 11/28/17 14:11 81 15 11/28/17 14:06 83 9 124/62 100 11/28/17 14:06 84 9 11/28/17 14:04 113/68 11/28/17 13:56 36.4 83 16 127/83 99 Oxymask 7 11/28/17 08:42 36.4 70 18 146/93 98 Room Air Notes Mental Status: alert / awake / arousable, participated in evaluation Pt Amnestic to Procedure: Yes Nausea / Vomiting: adequately controlled Pain: adequately controlled Airway Patency, RR, SpO2: stable & adequate BP & HR: stable & adequate Hydration State: stable & adequate Anesthetic Complications: no major complications apparent
[2017-11-28] MEDS: HYDROmorphone HCL 0.5MG/ML 50 ML CASSETTE IV PRN ×2 (15:13→23:14)
[2017-11-28] MEDS: CEFAZOLIN IV 1,000 MG in SYRINGE 0 ML IV SCH (20:03)
[2017-11-28] MEDS: SODIUM CHLORIDE 0.9% 1000ML 1,000 ML IV SCH (20:03)
[2017-11-28] MEDS: TOPIRAMATE 100 MG TAB PO SCH (21:00)
[2017-11-28] MEDS: DOCUSATE SODIUM/SENNA 50/8.6MG TAB PO SCH (21:09)
[2017-11-28] MEDS: METOPROLOL TARTRATE 25 MG TAB PO SCH (21:09)
[2017-11-28] MEDS: SENNA 8.6 MG TAB PO SCH (21:10)
[2017-11-29] VITALS (12 sets, daily range): BP systolic 75–135; BP diastolic 43–79; PULSE 57–94; TEMP 36.4–37.1; O2SAT 93–100
[2017-11-29] MEDS: SODIUM CHLORIDE 0.9% 1000ML 1,000 ML IV SCH ×4 (02:51→22:30)
[2017-11-29] MEDS: CEFAZOLIN IV 1,000 MG in SYRINGE 0 ML IV SCH (02:51)
[2017-11-29] MEDS ORDERED: NURSING VERBAL MED ORDER ONE ×2 (05:00→12:15)
[2017-11-29] MEDS ORDERED: HYDROmorphone INJ 0.5 MG/0.5 ML SYR IV PRN (06:00)
[2017-11-29] MEDS ORDERED: HYDROmorphone INJ 1 MG/ML SYR IV PRN (06:00)
[2017-11-29] MEDS ORDERED: DC PCA ONE (06:00)
[2017-11-29 06:53] LABS: BASO % 0.1 %; BASO ABS # 0.01 K/uL (0-0.2); EOS % 0.2 %; EOS ABS # 0.02 K/uL (0-0.5); HEMATOCRIT 38.4 % (42-52); HEMOGLOBIN 12.6 g/dL (14.0-18.0); IG# 0.02 K/uL (0.00-0.02); LYMPH % 14.4 %; LYMPH ABS # 1.45 K/uL (1.2-3.4); MEAN CELL VOLUME 94.6 fL (80-100); MEAN CORPUSCULAR HGB CONC 32.8 g/dl (32-36); MEAN PLATELET VOLUME 10.9 fL (7.4-10.4); MONO % 8.1 %; MONO ABS # 0.81 K/uL (0.11-0.59); NEUT ABS # 7.75 K/uL (1.4-6.5); PLATELET COUNT 169 K/uL (130-400); RED CELL DISTRIBUTION WIDTH CV 13.7 % (11.5-14.5); RED CELL DISTRIBUTION WIDTH SD 46.9 fL (36.4-46.3); WHITE BLOOD COUNT 10.06 K/uL (4.8-10.8)
[2017-11-29 07:32] LABS: CALCIUM 8.7 mg/dl (8.5-10.1); CREATININE 1.4 mg/dl (0.60-1.40); POTASSIUM 3.9 mmol/L (3.5-5.1)
[2017-11-29] MEDS: ASPIRIN 81 MG ECTAB PO SCH (08:43)
[2017-11-29] MEDS: ISOSORBIDE MONONITRATE 30 MG TABCR PO SCH (08:43)
[2017-11-29] MEDS: TOPIRAMATE 100 MG TAB PO SCH (08:44)
[2017-11-29] MEDS: METOPROLOL TARTRATE 25 MG TAB PO SCH ×2 (08:44→20:47)
[2017-11-29] MEDS: TOPIRAMATE 50 MG TAB PO SCH (08:45)
[2017-11-29] MEDS: OXYCODONE HCL IR 5 MG TAB (IMMEDIATE RELEASE) PO PRN ×3 (08:49→13:16)
--- NOTE | 2017-11-29 10:30 | Progress Note ---
Progress Note Date of Service Nov 29, 2017. Progress Note Back pain is controlled. Leg pain markedly improved. Vital signs stable. On exam is good strength testing. He is in bleeding without difficulty. Assessment status post revision decompression fusion. Plan this time continue physical therapy anticipate home Friday.
[2017-11-29] MEDS: NICOTINE 21 MG/24 HR TDSY TD SCH (11:14)
--- NOTE | 2017-11-29 14:13 | Medical Consult ---
Consultation Date of Consultation: Nov 29, 2017. Attending Physician: Brennan Alberto D.O. Reason for Consultation: Hypotension and syncope History of Present Illness 72 y/o M who is s/p lumbar spinal surgery revision on 11/[address] Alberto. Pt was having a normal morning for himself until around noon when he noted he was nauseated. He then became lightheaded and passed out. Pt was sitting in a chair when this happened and did not fall. Pt's BP was noted to be in the 70s- 80s systolic with HR WNL. Dr. Alberto was called and he ordered IVF at 200cc/hr and medicine c/s. His last BP is high 90s systolic. At this time, pt states he is hungry as his lunch tray was just brought in. He states that he frequently has upset stomach that leads to near syncope "ever since I was a little tike". He states he used to pass out with this periodically but not recently. He has a pacer in place for this reason. He otherwise feels at his usual. Pt denies fever, SOB, chest pain, abd pain, n/v/c /d, LE pain or swelling. He feels he is doing well from a surgical standpoint and is already walking better than prior to surgery. Past Medical/Surgical History Hx of syncope Pacer Hyperlipidemia OA BPH GERD Family History Family history was reviewed; no changes noted. Social History Smoking Status: Former Smoker (quit in 1985) Smokeless Tobacco Use: Yes Alcohol Use: rarely, "I still have a 12 pack of beer in my refrigerator from [place]" Drug Use: none Marital Status: Housing Status: lives with significant other Allergies Coded Allergies: Lactose Intolerance (GI) (Unverified Adverse Reaction, Intermediate, GI UPSET, 11/28/17) Rosuvastatin (Verified Adverse Reaction, Unknown, muscle aches, 11/28/17) Current Inpatient Medications Current Inpatient Medications Medications (Trade) Dose Ordered Sig/Jasper Route Start Time Stop Time Status Last Admin Dose Admin Promethazine HCl 12.5 mg/Sodium Chloride 50.5 ml @ 202 mls/hr Q6H PRN IV 11/28/17 13:45 12/28/17 13:44 Ondansetron HCl (Zofran Inj) 4 mg Q6H PRN IV 11/28/17 13:45 12/28/17 13:44 Metoclopramide HCl (Reglan Inj) 10 mg Q6H PRN IV 11/28/17 13:45 12/28/17 13:44 Lorazepam (Ativan Tab) 0.5 mg Q8H PRN PO 11/28/17 13:45 12/28/17 13:44 Lorazepam 0.5 mg/ Syringe 0.25 ml @ 1 mls/min Q8H PRN IV 11/28/17 13:45 12/28/17 13:44 Pneumococcal Polysaccharide Vaccine 1 ea PRN PRN N/A 11/28/17 13:45 12/28/17 13:44 Influenza Virus Vacc Triv Types A&B 1 ea PRN PRN N/A 11/28/17 13:45 12/28/17 13:44 Polyethylene (Miralax Powder Packet) 17 gm Q6 PO 11/30/17 06:00 12/30/17 05:59 Bisacodyl (Dulcolax Supp) 10 mg DAILY PRN [place] 11/28/17 13:45 12/28/17 13:44 Magnesium Hydroxide (Milk Of Magnesia Susp) 30 ml DAILY PRN PO 11/28/17 13:45 12/28/17 13:44 Hydromorphone HCl (Dilaudid Inj) 0.5 mg Q3H PRN IV 11/29/17 06:00 12/13/17 05:59 Oxycodone HCl (Roxicodone Immediate Rel Tab) 5-10mg prn moderate to sev... Q4H PRN PO 11/29/17 06:00 12/13/17 05:59 11/29/17 13:16 5 MG Acetaminophen (Tylenol Tab) 1,000 mg Q8H PRN PO 11/28/17 13:45 12/28/17 13:44 Acetaminophen 100 ml @ 400 mls/hr Q8H PRN IV 11/28/17 13:45 12/28/17 13:44 Naloxone HCl (Narcan Inj) 0.1 mg Q5M PRN IV 11/28/17 13:45 12/28/17 13:44 Senna/Docusate Sodium (Senokot S Tab) 2 tab HS PO 11/28/17 21:00 3/25/18 20:59 11/28/17 21:09 2 TAB Sodium Biphosphate/ Sodium Phosphate (Fleet Enema) 132 ml ONE PRN [place] 11/28/17 13:45 12/28/17 13:44 Hydroxyzine HCl (Vistaril Tab) 25 mg Q8H PRN PO 11/28/17 13:45 12/28/17 13:44 Al Hydroxide/Mg Hydroxide (Maalox Susp) 30 ml Q6H PRN PO 11/28/17 13:45 12/28/17 13:44 Famotidine (Pepcid Tab) 20 mg Q12 PRN PO 11/28/17 13:45 12/28/17 13:44 Diphenhydramine HCl (Benadryl Cap) 25 mg Q6H PRN PO 11/28/17 13:45 12/28/17 13:44 Aspirin (Ecotrin Tab) 81 mg QAM PO 11/29/17 09:00 12/29/17 08:59 11/29/17 08:43 81 MG Isosorbide Mononitrate (Imdur Ext Rel Tab) 30 mg QAM PO 11/29/17 09:00 12/29/17 08:59 11/29/17 08:43 30 MG Metoprolol Tartrate (Lopressor Tab) 25 mg BID PO 11/28/17 21:00 12/28/17 20:59 11/29/17 08:44 25 MG Senna (Senokot Tab) 8.6 mg QPM PO 11/28/17 21:00 12/28/17 20:59 11/28/17 21:10 8.6 MG Topiramate (Topamax Tab) 100 mg QPM PO 11/28/17 21:00 12/28/17 20:59 11/29/17 08:44 100 MG Topiramate (Topamax Tab) 50 mg QAM PO 11/29/17 09:00 12/29/17 08:59 11/29/17 08:45 50 MG Hydromorphone HCl (Dilaudid Inj) 1 mg Q3H PRN IV 11/29/17 06:00 12/13/17 05:59 Nicotine (Nicoderm Cq 21MG Patch) 1 patch QAM TD 11/30/17 09:00 12/30/17 08:59 11/29/17 11:14 1 PATCH Miscellaneous (Remove Nicoderm Patch) 1 ea HS N/A 11/29/17 21:00 12/29/17 20:59 Sodium Chloride 1,000 ml @ 200 mls/hr Q5H IV 11/29/17 12:30 12/29/17 12:29 11/29/17 12:59 200 MLS/HR Review of Systems Pertinent positives and negatives reviewed in HPI--all others negative Physical Exam Date Time Temp Pulse Resp B/P (MAP) Pulse Ox O2 Delivery O2 Flow Rate FiO2 11/29/17 13:23 36.7 57 16 98 11/29/17 12:13 71 93/61 (72) 95 Room Air 11/29/17 12:04 36.7 69 89/55 (66) 97 Room Air 11/29/17 12:01 64 89/55 (66) 98 Room Air 11/29/17 12:00 62 91/56 (68) 11/29/17 12:00 60 86/48 (61) 11/29/17 11:57 36.7 57 16 83/50 (61) 98 Room Air 75/43 (54) 11/29/17 11:36 36.7 72 16 110/72 (85) 98 Room Air 11/29/17 08:40 36.4 75 16 124/76 (92) 98 Room Air 11/29/17 08:16 Room Air 11/29/17 03:30 36.4 75 16 131/76 (94) 98 Room Air 11/28/17 23:30 Room Air 11/28/17 23:21 36.5 79 16 115/64 (81) 96 Room Air 11/28/17 21:05 88 123/68 (86) 11/28/17 18:20 87 15 118/67 (84) 98 Room Air 11/28/17 17:20 36.7 95 17 113/70 (84) 98 Room Air 11/28/17 17:20 36.4 88 16 119/67 (84) 99 Nasal Cannula 1.0 11/28/17 16:20 36.5 73 16 111/64 (80) 99 Nasal Cannula 1.0 11/28/17 15:50 36.4 100 16 125/64 (84) 100 Nasal Cannula 2.0 11/28/17 15:20 100 Nasal Cannula 3.0 11/28/17 15:20 100 Nasal Cannula 3.0 11/28/17 15:20 36.2 70 14 121/68 (85) 100 Nasal Cannula 3.0 11/28/17 14:56 67 17 112/61 100 11/28/17 14:56 36.5 68 17 11/28/17 14:51 70 15 11/28/17 14:51 69 15 108/59 100 11/28/17 14:46 73 15 11/28/17 14:46 72 15 113/59 100 11/28/17 14:41 75 14 113/62 11/28/17 14:41 14 11/28/17 14:37 113/59 11/28/17 14:36 71 16 100 11/28/17 14:36 71 16 11/28/17 14:31 74 14 112/61 100 11/28/17 14:31 74 14 11/28/17 14:26 78 10 11/28/17 14:26 77 10 118/63 100 11/28/17 14:21 75 18 122/65 100 11/28/17 14:21 76 18 11/28/17 14:16 77 12 11/28/17 14:16 77 12 108/65 100 11/28/17 14:11 80 15 118/80 100 11/28/17 14:11 81 15 11/28/17 14:06 83 9 124/62 100 11/28/17 14:06 84 9 General Appearance: WD/WN, no apparent distress Head: normocephalic, atraumatic Eyes: normal inspection, sclerae normal Respiratory/Chest: normal breath sounds, no respiratory distress Cardiovascular: regular rate, rhythm, no edema Abdomen/GI: non tender, soft Extremities/Musculoskelatal: no calf tenderness, no pedal edema Neurologic/Psych: alert, normal mood/affect, oriented x 3 Skin: normal color, warm/dry Laboratory Results Last 24 Hours Test 11/29/17 06:09 White Blood Count 10.06 K/uL Red Blood Count 4.06 M/uL Hemoglobin 12.6 g/dL Hematocrit 38.4 % Mean Corpuscular Volume 94.6 fL Mean Corpuscular Hemoglobin 31.0 pg Mean Corpuscular Hemoglobin Concent 32.8 g/dl Platelet Count 169 K/uL Mean Platelet Volume 10.9 fL Neutrophils (%) (Auto) 77.0 % Lymphocytes (%) (Auto) 14.4 % Monocytes (%) (Auto) 8.1 % Eosinophils (%) (Auto) 0.2 % Basophils (%) (Auto) 0.1 % Neutrophils # (Auto) 7.75 K/uL Lymphocytes # (Auto) 1.45 K/uL Monocytes # (Auto) 0.81 K/uL Eosinophils # (Auto) 0.02 K/uL Basophils # (Auto) 0.01 K/uL RDW Standard Deviation 46.9 fL RDW Coefficient of Variation 13.7 % Immature Granulocyte % (Auto) 0.2 % Immature Granulocyte # (Auto) 0.02 K/uL Sodium Level 141 mmol/L Potassium Level 3.9 mmol/L Chloride Level 109 mmol/L Carbon Dioxide Level 23 mmol/L Anion Gap 9.0 mmol/L Blood Urea Nitrogen 15 mg/dl Creatinine 1.40 mg/dl Est Creatinine Clear Calc Drug Dose 45.5 ml/min Estimated GFR () 57.4 Estimated GFR (Non- 49.5 BUN/Creatinine Ratio 11.0 Random Glucose 107 mg/dl Calcium Level 8.7 mg/dl Assessment & Plan 72 y/o M who is s/p lumbar spinal surgery revision on 11/[address] Alberto. Pt was having a normal morning for himself until around noon when he noted he was nauseated. He then became lightheaded and passed out. Pt was sitting in a chair when this happened and did not fall. Pt's BP was noted to be in the 70s- 80s systolic with HR WNL. Dr. Alberto was called and he ordered IVF at 200cc/hr and medicine c/s. His last BP is high 90s systolic. Syncope: hx of similar but not recently (usually just pre-syncope) Possibly dehydration in the setting of recent OR Hb WNL Improving s/p IVF Transfer to tele and monitor Pacer interrogation (last was pre-op on 11/24). Follows with Dr. Awad if needed CBC, PRP this AM WNL No hx of DM BPH: monitor, will continue these medications for now with hold parameters Recent spinal surgery: as per ortho Diet and DVT proph as per ortho
[2017-11-29] MEDS: KETOROLAC TROMETHAMINE 15 MG/ML VIAL IV. PRN (18:16)
[2017-11-29] MEDS: SENNA 8.6 MG TAB PO SCH (22:02)
[2017-11-29] MEDS: DOCUSATE SODIUM/SENNA 50/8.6MG TAB PO SCH (22:02)
[2017-11-30] VITALS (10 sets, daily range): BP systolic 114–152; BP diastolic 67–84; PULSE 74–100; TEMP 36.7–37.4; O2SAT 93–99
[2017-11-30] MEDS ORDERED: NURSING VERBAL MED ORDER ONE (03:30)
[2017-11-30] MEDS: SODIUM CHLORIDE 0.9% 1000ML 1,000 ML IV SCH ×3 (03:57→22:45)
[2017-11-30] MEDS: POLYETHYLENE (MIRALAX) 17 GM PACK PO SCH ×4 (05:28→23:48)
[2017-11-30] MEDS: KETOROLAC TROMETHAMINE 15 MG/ML VIAL IV. PRN ×2 (07:39→19:39)
[2017-11-30] MEDS: ISOSORBIDE MONONITRATE 30 MG TABCR PO SCH (07:40)
[2017-11-30] MEDS: ASPIRIN 81 MG ECTAB PO SCH (07:40)
[2017-11-30] MEDS: TOPIRAMATE 50 MG TAB PO SCH (07:43)
[2017-11-30] MEDS: NICOTINE 21 MG/24 HR TDSY TD SCH (09:00)
[2017-11-30] MEDS: METOPROLOL TARTRATE 25 MG TAB PO SCH ×2 (09:51→20:40)
--- NOTE | 2017-11-30 12:36 | Progress Note ---
Progress Note Date of Service Nov 30, 2017. Progress Note Patient's back pain is well-controlled. Vital signs are stable. On exam he appears comfortable. His good strength testing. Assessment status post lumbar decompression and fusion. Plan at this time he is progressing nicely. Appears to be stable. I anticipate discharge home tomorrow. He may transfer to the orthopedic floor when cleared by medicine.
--- NOTE | 2017-11-30 13:03 | Progress Note ---
Subjective Date of Service: Nov 30, 2017. Subjective pt feels back to his usual state, relates that sometimes he has issues with pain meds and has almost passed out before, no issues overnight Review of Systems Constitutional: + weakness, + fatigue, No fever, No chills Respiratory: No cough, No shortness of breath, No dyspnea on exertion Cardiac: No chest pain, No edema Abdomen: No pain, No vomiting, No diarrhea Musculoskeletal: No joint pain, No muscle pain Male : No dysuria, No incontinence Objective Vital Signs Date Time Temp Pulse Resp B/P (MAP) Pulse Ox O2 Delivery O2 Flow Rate FiO2 11/30/17 12:00 37.1 78 20 114/67 (83) 97 Room Air 11/30/17 09:00 37.0 95 22 131/73 (92) 96 Room Air 11/30/17 04:00 94 Room Air 11/30/17 03:18 37.4 93 17 148/80 (102) 94 Room Air 11/30/17 00:42 37.3 100 17 152/84 (106) 94 Room Air 11/30/17 00:01 93 Room Air 11/29/17 20:00 93 Room Air 11/29/17 19:26 37.1 89 18 130/79 (96) 93 Room Air 11/29/17 15:53 36.7 94 20 135/75 (95) 95 Room Air 11/29/17 14:00 36.6 70 16 119/71 (87) 100 Room Air 11/29/17 13:23 36.7 57 16 98 Physical Exam General Appearance: WD/WN, + mild distress Eyes: normal inspection, sclerae normal Respiratory/Chest: chest non-tender, lungs clear Cardiovascular: regular rate, rhythm, no murmur Abdomen: normal bowel sounds, non tender, soft Extremities: no pedal edema, no calf tenderness Neurologic/Psychiatric: alert, oriented x 3 Assessment and Plan 72 y/o M who is s/p lumbar spinal surgery revision on 11/[address] Alberto. became lightheaded and passed out 11/29 while sitting in a chair. Pt states he felt similar in the past while taking pain medicine but did not pass out Syncope Improved s/p IVF Pacer interrogation (last was pre-op on 11/24). Follows with Dr. Awad if needed BPH: monitor, will continue these medications with hold parameters Recent spinal surgery: as per ortho Diet and DVT proph as per ortho
[2017-11-30] MEDS: TOPIRAMATE 100 MG TAB PO SCH (20:40)
[2017-11-30] MEDS: DOCUSATE SODIUM/SENNA 50/8.6MG TAB PO SCH (20:40)
[2017-11-30] MEDS: SENNA 8.6 MG TAB PO SCH (20:41)
[2017-12-01] MEDS: POLYETHYLENE (MIRALAX) 17 GM PACK PO SCH (05:35)
[2017-12-01] MEDS: ASPIRIN 81 MG ECTAB PO SCH (07:30)
[2017-12-01] MEDS: ISOSORBIDE MONONITRATE 30 MG TABCR PO SCH (07:30)
[2017-12-01] MEDS: NICOTINE 21 MG/24 HR TDSY TD SCH (07:33)
[2017-12-01] MEDS: TOPIRAMATE 50 MG TAB PO SCH (07:33)
[2017-12-01] MEDS: METOPROLOL TARTRATE 25 MG TAB PO SCH (07:33)
[2017-12-01] MEDS ORDERED: RXC5 PO (07:36)
--- NOTE | 2017-12-01 07:37 | Discharge Instructions ---
Discharge Instructions Date of Service Dec 01, 2017. Admission Reason for Admission: Lumbar Spinal Stenosis Discharge Discharge Diagnosis / Problem: lumbar stenosis Discharge Goals Goal(s): Improve function Activity Recommendations Activity Limitations: per Instructions/Follow-up section . Instructions / Follow-Up Instructions / Follow-Up ACTIVITY RECOMMENDATIONS: SELF CARE INSTRUCTIONS AFTER THORACIC/LUMBAR FUSIONS 1. You may walk to your tolerance. It is good exercise for your legs and back. Expect some back and intermittent leg aches and pains. 2. You may perform "counter-top" level activities (make a sandwich, yunior with a project, etc.). 3. No bending or lifting of more than 10 pounds or back twisting of any nature (roll like a log when turning in bed). 4. You may ride in a car for 20-30 minutes at a time. No driving until after your first visit with your doctor. 5. Frequent changes of position and restricting sitting to 30 minutes at a time will help limit the amount of back spasms and stiffness you may experience. 6. You may discontinue the use of ambulatory aids (cane, crutches, etc.) once your strength and confidence allow. 7. You may strainer tender the shower and let water strike your incision when you arrive home at least once daily. Do not take a tub bath, sit in a hot tub or go into a swimming pool until after your first recheck in the office. SPECIAL CARE INSTRUCTIONS: VERY IMPORTANT TO READ AND REVIEW A. Your surgical incision has been closed with a cosmetic suture under the skin that will dissolve in about 6 weeks. In 14 days, you can use a pair of clean scissors and cut the suture that is left outside of the skin at the ends of your incision. 1. The small skin tapes can be removed 7 days after surgery if they have not fallen off by that point. 2. You may keep the wound open to air as much as possible to promote healing after post-op day number 5 unless told otherwise by your doctor. 3. If you think the wound looks like it is becoming infected (redness or worsening drainage) and/or you are experiencing fever, chill or worsening back pain and muscle spasms, contact the office so that we may evaluate you as soon as possible. B. Complications are uncommon, but please contact us if you have any signs or symptoms of: 1. wound infection (fever higher than 102.5 degrees F, redness, separation of wound, drainage, or increasing pain from the incision) 2. blood clots in legs (pain, swelling, redness and warmth in legs) 3. urinary tract infection (fever higher than 102.5 degrees F, burning upon urination or increased frequency of urination) 4. nerve problems (inability to walk on your toes or heels, numbness, loss of bowel or bladder control) 5. any other symptoms that concern you C. Please call the office at if you have any concerns or questions about your operation or recovery. D. No smoking! Smoking drastically decreases the chance of a solid fusion. E. Do not take any anti-inflammatory medications (Indocin, Advil, Motrin, Aspirin, Naprosyn, etc.) as these may inhibit the chance of a solid fusion. Tylenol is okay to take for pain. MANAGING PAIN AFTER SPINAL SURGERY 1. Narcotic medication is intended for short-term use and will be provided for surgical pain. Surgical pain usually lasts for a period of 4-6 weeks. Narcotic medication includes Percocet, Vicodin, Darvocet, Tylenol #3 or Lortab. 2. Longer-term pain is more appropriately treated with non-narcotic medication such as Tylenol ES. 3. Muscle spasm is not appropriately treated with narcotics. Muscle relaxers such as Soma, Flexeril or Skelaxin can be used along with Tylenol ES. 4. Remember that we all live with some "aches and pains". This is not unusual or uncommon after an injury or as we get older. a. Back pain is expected and may include muscle spasms for 4 to 6 weeks after surgery. The pain should gradually improve. If the pain worsens for no apparent reason, please contact the office. b. Intermittent leg pain may also be experienced and should not be concerned about unless it worsens for no apparent reason. If so, please contact the office. 5. We will provide appropriate medication within the normal guidelines of their prescribed use. We will also be very cautious and aware of potential abuse and extended duration of patients' medication needs. a. Pain medications are for your comfort and to assist with sleep and rest so that the tissue can heal. They are not provided in order to return to normal activity and should not be used through the day. To do so or worsening pain at night can result from ongoing tissue damage and development of tolerance to the prescribed medicine. 6. Please allow 2-3 days to process refills. Prescriptions will not be mailed but must be picked up at the office. FOLLOW UP VISIT: Keep your scheduled follow-up appointment. Any questions, please call the office at . Current Hospital Diet Patient's current hospital diet: Regular Diet Discharge Diet Recommended Diet: Regular Diet Procedures Procedures Performed: #1 removal of posterior segmental instrumentation L2 to S1. #2 expiration of fusion L2 to S1. #3 posterior spinal fusion L4 5 L5-S1. #4 bilateral SI joint fusions. #5 placement posterior segmental instrumentation L4 to S1 with bilateral iliac bolts. #6 placement of locally harvested morcellized autograft in the posterior lateral gutters. #7 placement infuse collagen sponge combined with Master graft the posterior gutters and bilateral SI joints. Pending Studies Studies pending at discharge: no Medical Emergencies . Who to Call and When: Medical Emergencies: If at any time you feel your situation is an emergency, please call 911 immediately. . Non-Emergent Contact Non-Emergency issues call your: Primary Care Provider . "Provider Documentation" section prepared by Brennan Alberto. . VTE Core Measure Inpt VTE Proph given/why not?: Arminda Cui, [facility]
[2017-12-01 07:38] VITALS: BP 128/76; PULSE 87
[2017-12-01] MEDS: SODIUM CHLORIDE 0.9% 1000ML 1,000 ML IV SCH (07:38)
[2017-12-01 07:59] VITALS: BP 124/84; PULSE 84; TEMP 36.8; O2SAT 98
[2017-12-01 08:00] VITALS: O2SAT 98
--- NOTE | 2017-12-01 08:00 | Anesthesiology Progress Note ---
Anesthesia Post Op Note Date & Time Dec 01, 2017 at 08:00 Vital Signs Pain Intensity: 5.0 Vital Signs Past 12 Hours Date Time Temp Pulse Resp B/P (MAP) Pulse Ox O2 Delivery O2 Flow Rate FiO2 12/01/17 07:38 87 128/76 (93) 11/30/17 23:49 Room Air 11/30/17 23:10 36.7 74 16 129/76 (93) 97 Room Air 11/30/17 20:35 86 136/79 (98) 95 Room Air Notes Mental Status: alert / awake / arousable, participated in evaluation Pt Amnestic to Procedure: Yes Nausea / Vomiting: adequately controlled Pain: adequately controlled Airway Patency, RR, SpO2: stable & adequate BP & HR: stable & adequate Hydration State: stable & adequate Anesthetic Complications: no major complications apparent
[2017-12-01 08:30] VITALS: BP 124/84; PULSE 84; TEMP 36.8; O2SAT 98
--- NOTE | 2017-12-01 08:54 | Discharge Summary ---
Orthopedic Discharge Summary Admission Date/Reason Nov 28, 2017 at 10:30 Lumbar Spinal Stenosis. Discharge Date/Disposition Dec 01, 2017 Home Diagnosis Principal Diagnosis: Lumbar spinal stenosis with nonunion Admission Physical Exam As per Admitting History & Physical. Hospital Course Patient underwent revision decompression and fusion tolerated this well and was taken to the orthopedic floor postoperatively. He did have a vasovagal episode was monitored in the PACU 1 night. He was stable. He's been up in and bleeding well bowels working appropriately pain well controlled. Subsequently discharged home. Discharge orders and instructions found in the chart for further review. Discharge Instructions Please refer to the electronic Patient Visit Report (Discharge Instructions) for additional information.
--- NOTE | 2017-12-01 16:02 | Progress Note ---
Progress Note Date of Service Dec 01, 2017. Progress Note Patient was discharged when i come to see patient this morning
== END 2017-12-01 10:00 | disposition home or self-care (01) | DRG 460 ==
LOC: C.ACU 08:05 → C.3E 10:30 → ENRESERV 14:43 → C.2T 11-29 14:00 → C.3E 11-30 12:56 → ENRESERV 11-30 13:42
PROVIDERS: ADMIT Orthopaedic Surgery Orthopaedic Surgery of the Spine; ATTEND Orthopaedic Surgery Orthopaedic Surgery of the Spine
PROC: 0SP004Z Removal of Internal Fixation Device from Lumbar Vertebral Joint, Open Approach (ICD-10-PCS; principal; 2017-11-28 10:30)
PROC: 0SG3071 Fusion of Lumbosacral Joint with Autologous Tissue Substitute, Posterior Approach, Posterior Column, Open Approach (ICD-10-PCS; principal; 2017-11-28 10:30)
PROC: 0SG0071 Fusion of Lumbar Vertebral Joint with Autologous Tissue Substitute, Posterior Approach, Posterior Column, Open Approach (ICD-10-PCS; principal; 2017-11-28 10:30)
PROC: 0SP304Z Removal of Internal Fixation Device from Lumbosacral Joint, Open Approach (ICD-10-PCS; principal; 2017-11-28 10:30)
PROC: 0SG704Z Fusion of Right Sacroiliac Joint with Internal Fixation Device, Open Approach (ICD-10-PCS; principal; 2017-11-28 10:30)
PROC: 0SG804Z Fusion of Left Sacroiliac Joint with Internal Fixation Device, Open Approach (ICD-10-PCS; principal; 2017-11-28 10:30)
DX: M48.061 Spinal stenosis, lumbar region without neurogenic claudication (principal); M96.0 Pseudarthrosis after fusion or arthrodesis; Z98.1 Arthrodesis status; R55 Syncope and collapse; I10 Essential (primary) hypertension; I25.10 Atherosclerotic heart disease of native coronary artery without angina pectoris; N40.0 Benign prostatic hyperplasia without lower urinary tract symptoms; E78.5 Hyperlipidemia, unspecified; F17.220 Nicotine dependence, chewing tobacco, uncomplicated; I25.2 Old myocardial infarction; Z95.0 Presence of cardiac pacemaker; Z95.5 Presence of coronary angioplasty implant and graft; Z96.698 Presence of other orthopedic joint implants; Z98.890 Other specified postprocedural states; Z79.82 Long term (current) use of aspirin; Z79.899 Other long term (current) drug therapy; E73.9 Lactose intolerance, unspecified; Z88.8 Allergy status to other drugs, medicaments and biological substances

== ENCOUNTER 2018-01-15 19:14 | Emergency (ER) | payer BC, OTHER ==
[~2018-01-15] VITALS: Ht 172.7 cm; Wt 69.5 kg
[~2018-01-15 19:14] MED LIST changes: +ASPI-319 PO; -ASPI81TA21 PO; -CEFAZOLIN 1000MG IV PUSH 7.5 ML IV SCH; -LACTATED RINGER'S 1000ML 1,000 ML IV SCH; +RXC5 PO
[2018-01-15 19:16] VITALS: TEMP 36.7; Ht 172.7 cm; Wt 69.5 kg
[2018-01-15] MEDS ORDERED: SODIUM CHLORIDE 0.9% 500ML 500 ML IV STA (19:33)
[2018-01-15] MEDS ORDERED: ONDANSETRON INJ 2 MG/ML 2 ML VIAL IV STA (19:33)
[2018-01-15] MEDS ORDERED: SODIUM CHLORIDE 0.9% 1000ML 1,000 ML IV STA (19:33)
--- NOTE | 2018-01-15 19:43 | EMERGENCY ROOM VISIT NOTE ---
History Report prepared by Belén: Kristofer Pitts Under the Supervision of: Dr. Kelly Santizo M.D. First contact with patient: 19:21 Chief Complaint: NOSE BLEED (MINOR) Stated Complaint: NOSE BLEED, HEADACHE History of Present Illness The patient is a 72 year old male who presents to the Emergency Room with complaints of intermittent epistaxis beginning last night. He rates his discomfort as a 5/10 in severity. The patient states that last night he started to experience a headache and a chest discomfort. He also notes he had gum pain that radiated into his eyes and forehead. The patient states that he usually takes an Aspirin in the morning, but reports he took a second one at night due to his discomfort. He also reports he used Flonase and an inhaler. He states that he went to bed and woke up around midnight when he noticed he had an episode of epistaxis out of his right nostril. The patient reports that he cleaned up the blood and went back to bed. He reports that he woke up in the morning and noticed there was blood running out of his right nostril again. The patient states that he had mild episodes throughout the day, which would intermittently resolve. He reports that his last episode occurred prior to arrival. The patient states he used an ice pack and pinched his nose to help resolve the episode. He reports he currently feels blood in the back of his throat. He states he has also been experiencing lightheadedness. The patient states that he usually gets nose bleeds sporadically, but reports they have increased in frequency since last night. He reports a history of a myocardial infarction in 2013. The patient states he has two coronary artery stents. He also reports he has a pacemaker. Source of History: patient Onset: last night Position: other (right nostril) Symptom Intensity: 5/10 Quality: other (epistaxis) Timing: intermittent Modifying Factors (Relieving): other (ice pack, pinching nose) Associated Symptoms: + headache, + chest pain Note: Associated symptoms: gum pain, face pain, lightheaded Review of Systems See HPI for pertinent positives & negatives. A total of 10 systems reviewed and were otherwise negative. Past Medical & Surgical Medical Problems: (1) Chronic back pain (2) Diverticulosis Colon (W/O Ment Of Hemorrhage) (3) Esophageal Reflux (4) Hyperlipidemia Nec/Nos (5) Hypertrophy (Benign) Of Prostate W/O Urinary Obst & Oth Luts (6) Lumbar stenosis with neurogenic claudication (7) Osteoarthros Nos-Ankle (8) Osteoarthros Nos-Unspec (9) Pacemaker (10) Sciatica (11) Syncope Surgical Problems: (1) History of back surgery Family History Heart disease Social History Smoking Status: Former Smoker Drug Use: none Marital Status: Housing Status: lives with significant other Current/Historical Medications Scheduled Acetaminophen (Tylenol), 500 MG PO PRN Aspirin Enteric Coated (Ecotrin Or Generic), 81 MG PO QAM Atorvastatin (Lipitor), 20 MG PO 3XWEEK Calcium Carbonate (Tums), 2 TAB PO PRN Cholecalciferol (Vitamin D3), 1 TAB PO QPM Isosorbide Mononitrate Ext Rel (Imdur Ext Rel), 30 MG PO QAM Meclizine HCl (Meclizine HCl), 1 TAB PO PRN Metoprolol Tartrate (Lopressor) (Lopressor), 25 MG PO BID Multivitamin (Multivitamin), 1 TAB PO QPM Polyethylene Glycol 3350 (Miralax), 17 GM PO QPM Probiotic Product (Probiotic), 1 TAB PO QAM Senna (Senokot), 2-3 TAB PO QPM Topiramate (Topiramate), 50 MG PO QAM Topiramate (Topamax), 100 MG PO QPM Scheduled PRN Ascorbic Acid (Vitamin C), 500 MG PO QAM PRN for RN Diphenhydramine-Acetaminophen (Tylenol Pm), 1 TAB PO HS PRN for PRN Ondansetron (Ondansetron HCl), 4 MG PO PRN PRN for Nausea or Vomiting Oxycodone/Acetaminophen 5MG/325MG (Percocet 5MG/325MG), 1 TABLET PO AMPM PRN for Pain Ranitidine Hcl (Zantac), 300 MG PO DAILY PRN for REFLUX Allergies Coded Allergies: Lactose Intolerance (GI) (Unverified Adverse Reaction, Intermediate, GI UPSET, 11/28/17) Rosuvastatin (Verified Adverse Reaction, Unknown, muscle aches, 11/28/17) Physical Exam Vital Signs Date Time Temp Pulse Resp B/P (MAP) Pulse Ox O2 Delivery O2 Flow Rate FiO2 01/15/18 22:40 70 16 147/87 96 01/15/18 21:40 63 16 125/75 99 Room Air 01/15/18 20:51 64 16 147/82 99 Room Air 01/15/18 20:20 60 01/15/18 20:15 64 18 138/81 98 Room Air 01/15/18 19:48 66 138/76 68 136/80 79 127/81 01/15/18 19:16 36.7 83 18 125/76 96 Room Air Physical Exam Vital signs reviewed. General: Well-appearing 72 year old male, in no significant distress. HEENT: No scleral icterus, PERRLA, neck supple. Dried blood in the bilateral nares. Poor visualization otherwise. No active bleeding. Old blood in the posterior oropharynx. Atraumatic. Cardiovascular: Regular rate and rhythm, no extra sounds. Pulmonary: Clear to auscultation bilaterally, normal work of breathing. Abdomen: Soft, nontender, nondistended, positive bowel sounds. Musculoskeletal: Atraumatic, no peripheral edema. Neurologic: Patient awake alert and oriented x 3, full strength in all 4 extremities. Cranial nerves 2 through 12 grossly intact. Skin: Warm, dry, no rash Medical Decision & Procedures ER Provider Diagnostic Interpretation: Radiology results as stated below per my review and radiologist interpretation: HEAD CT NONCONTRAST CT DOSE: 537.48 mGy.cm HISTORY: Right-sided headache. Facial pain. Metastatic. TECHNIQUE: Multiaxial CT images of the head were performed without the use of intravenous contrast. Automated exposure control was utilized for this study. A dose lowering technique was utilized adhering to the principles of ALARA. Comparison: Head CT 07/08/2017. Findings: The paranasal sinuses and mastoid air cells are clear. The calvarium and skull base are intact. Slight progression of the area of calcification within the right temporal lobe. This previous measured 2.4 x 2.0 cm. This currently measures 2.9 x 2.5 cm. There is also mild progression of the surrounding vasogenic edema within the right temporal lobe. This results in slight mass effect along the right lateral ventricle and up to 3 mm of left midline shift which is also slightly progressed. Mild atrophy and microvascular ischemic changes are again noted. No acute infarct or acute hemorrhage identified. A 1.1 cm nodular focus of increased density within the right temporal lobe on image 8 has also slightly progressed but favors calcification rather than hemorrhage. Impression: 1. Slight progression of the area of calcification and surrounding vasogenic edema within the right temporal lobe. This remains highly suspicious for an underlying mass. 2. This results in slight increased mass effect along the right lateral ventricle and up to 3 mm of left midline shift. Electronically signed by: Sal Argueta M.D. 01/15/2018 8:16 PM Dictated Date/Time: 01/15/2018 8:10 PM 11/11/17 CT 1.Linear nodular calcification within the right temporal lobe, increased from the prior study. Hypodensity within the right temporal lobe extending into the right subinsular and right pediatrial white matter, slightly increased compared with the prior study. [place] areas of superimposed enhancement adjacent to the areas of calcification within the right temporal lob lesion. Persistent localized mass effect with effacement of the right temporal sulci and partial effacement of the right temporal horn. The imaging findings are worrisome for a primary brain neoplasm. Neurosurgical consultation is recommended. 2. Global volume loss and findings most commonly associated with chronic small vessel ischemic changes. Intracranial atherosclerotic disease. Additional findings as described above. Laboratory Results 01/15/18 19:40 Red Blood Count 3.82, Mean Corpuscular Volume 89.5, Mean Corpuscular Hemoglobin 29.8, Mean Corpuscular Hemoglobin Concent 33.3, Mean Platelet Volume 10.0, Neutrophils (%) (Auto) 61.0, Lymphocytes (%) (Auto) 27.0, Monocytes (%) (Auto) 9.1, Eosinophils (%) (Auto) 2.4, Basophils (%) (Auto) 0.3, Neutrophils # (Auto) 3.55, Lymphocytes # (Auto) 1.57, Monocytes # (Auto) 0.53, Eosinophils # (Auto) 0.14, Basophils # (Auto) 0.02 01/15/18 19:40 Test 01/15/18 19:40 White Blood Count 5.82 K/uL (4.8-10.8) Red Blood Count 3.82 M/uL (4.7-6.1) Hemoglobin 11.4 g/dL (14.0-18.0) Hematocrit 34.2 % (42-52) Mean Corpuscular Volume 89.5 fL (80-100) Mean Corpuscular Hemoglobin 29.8 pg (25-34) Mean Corpuscular Hemoglobin Concent 33.3 g/dl (32-36) Platelet Count 233 K/uL (130-400) Mean Platelet Volume 10.0 fL (7.4-10.4) Neutrophils (%) (Auto) 61.0 % Lymphocytes (%) (Auto) 27.0 % Monocytes (%) (Auto) 9.1 % Eosinophils (%) (Auto) 2.4 % Basophils (%) (Auto) 0.3 % Neutrophils # (Auto) 3.55 K/uL (1.4-6.5) Lymphocytes # (Auto) 1.57 K/uL (1.2-3.4) Monocytes # (Auto) 0.53 K/uL (0.11-0.59) Eosinophils # (Auto) 0.14 K/uL (0-0.5) Basophils # (Auto) 0.02 K/uL (0-0.2) RDW Standard Deviation 43.5 fL (36.4-46.3) RDW Coefficient of Variation 13.3 % (11.5-14.5) Immature Granulocyte % (Auto) 0.2 % Immature Granulocyte # (Auto) 0.01 K/uL (0.00-0.02) Prothrombin Time 10.4 SECONDS (9.0-12.0) Prothromb Time International Ratio 1.0 (0.9-1.1) Activated Partial Thromboplast Time 26.8 SECONDS (21.0-31.0) Partial Thromboplastin Ratio 1.0 Anion Gap 5.0 mmol/L (3-11) Est Creatinine Clear Calc Drug Dose 41.9 ml/min Estimated GFR () 51.9 Estimated GFR (Non- 44.8 BUN/Creatinine Ratio 11.3 (10-20) Calcium Level 9.3 mg/dl (8.5-10.1) Total Bilirubin 0.2 mg/dl (0.2-1) Direct Bilirubin < 0.1 mg/dl (0-0.2) Aspartate Amino Transf (AST/SGOT) 23 U/L (15-37) Alanine Aminotransferase (ALT/SGPT) 23 U/L (12-78) Alkaline Phosphatase 151 U/L (45-117) Total Protein 7.6 gm/dl (6.4-8.2) Albumin 3.7 gm/dl (3.4-5.0) Laboratory results per my review. Medications Administered Medications (Trade) Dose Ordered Sig/Jasper Route Start Time Stop Time Status Last Admin Dose Admin Sodium Chloride 500 ml @ 999 mls/hr Q31M STAT IV 01/15/18 19:33 01/15/18 20:03 DC 01/15/18 20:00 999 MLS/HR Sodium Chloride 1,000 ml @ 125 mls/hr Q8H STAT IV 01/15/18 19:33 01/15/18 23:12 DC 01/15/18 20:54 125 MLS/HR Ondansetron HCl (Zofran Inj) 4 mg NOW STAT IV 01/15/18 19:33 01/15/18 19:36 DC 01/15/18 20:00 4 MG ECG Per My Interpretation Indication: chest pain Rate (beats per minute): 68 Rhythm: normal sinus Findings: no acute ischemic change, no ectopy, other (No ST elevation) ED Course 1922: Past medical records reviewed. The patient was evaluated in room C05. A complete history and physical examination was performed. 1932: Ordered Zofran Injection 4 mg IV, Sodium Chloride 1000 ml @ 125 mls/hr IV , Sodium Chloride 500 ml @ 999 mls/hr IV. 2048: I reevaluated the patient and updated him on his results. The patient reports he has had work up done on his temporal lobe mass. He was recommended a close follow up with Dr. Wil Forde, but has been cancelling due to his recent back pain and surgery. He has an appointment in February and does not want to make it sooner. 2156: I reevaluated the patient. I discussed findings with the patient. He verbalized agreement of the treatment plan. The patient was discharged home. I will contact case management for follow up with his PCP. Medical Decision Differential diagnosis: Etiologies such as anterior epistaxis, coagulopathy, traumatic injury, fracture , septal hematoma, posterior epistaxis as well as other pathologies were entertained. This pt was evaluated and appeared to be in no distress. IV access was obtained and lab work was drawn. Pt was hydrated with NSS, given IV zofran for nausea. Epistaxis subsided without further intervention. Pt was advised against picking the clots out of the nares or blowing, as he does frequently. Pt c/o CARRAS[place] and CT head was performed. CT reveals right parietal mass with calcification. Pt is aware of this and has been delaying further evaluation with neurosurgery. Previous scan performed as outpt was obtained. He was scheduled to f/u last month but postponed d/t recent back surgery. He seems very resistant to facilitation of a sooner appt with neurosurgery. I have emphasized the importance of the findings. He reiterated how ill his is and that he needs to care for her. I have offered to call his daughter to help communicate the issues at hand but he has declined. Pt was d/c to care of his neighbor. He will fu with PCP this week and return to the ED for worsening of symptoms or any medical concerns. Medication Reconcilliation Current Medication List: was personally reviewed by me Blood Pressure Screening Patient's blood pressure: Normal blood pressure Impression Primary Impression: Epistaxis Additional Impressions: Right temporal lobe mass Chronic headaches Scribe Attestation The scribe's documentation has been prepared under my direction and personally reviewed by me in its entirety. I confirm that the note above accurately reflects all work, treatment, procedures, and medical decision making performed by me. Departure Information Dispostion Home / Self-Care Referrals Peter Menezes MD (PCP) Forms HOME CARE DOCUMENTATION FORM, IMPORTANT VISIT INFORMATION, WORK / SCHOOL INSTRUCTIONS Patient Instructions My [facility] Additional Instructions Diagnosis: Epistaxis, right temporal lobe mass. Please stop taking the aspirin for the next several days. Avoid scratching, rubbing, picking, or blowing your nose. The impregnator and drier your nasal passages the more likely they are to bleed. The following two products are available [id number] at most drug stores/pharmacies: [place] nasal spray or similar generic saline spray to keep the nose moist 3 to 4 times a day or Apply [place] gel 2-3 times daily to the nostrils to keep them moist. If bleeding recurs apply direct pressure for an uninterrupted 20 minutes. On and off pressure is much less effective because it will disturb the clots that are forming. If the bleeding is still a problem after 20 minutes or is so heavy despite the pressure return to the emergency department. Follow-up with your primary care physician in 2 to 3 days for a recheck of your current condition. Case management will contact you tomorrow morning to help arrange follow-up with Dr. Menezes and neurosurgery if needed. Problem Qualifiers
[2018-01-15 19:51] LABS: BASO % 0.3 %; BASO ABS # 0.02 K/uL (0-0.2); EOS % 2.4 %; EOS ABS # 0.14 K/uL (0-0.5); HEMATOCRIT 34.2 % (42-52); HEMOGLOBIN 11.4 g/dL (14.0-18.0); IG# 0.01 K/uL (0.00-0.02); LYMPH ABS # 1.57 K/uL (1.2-3.4); MEAN CELL VOLUME 89.5 fL (80-100); MEAN CORPUSCULAR HEMOGLOBIN 29.8 pg (25-34); MEAN CORPUSCULAR HGB CONC 33.3 g/dl (32-36); MONO % 9.1 %; MONO ABS # 0.53 K/uL (0.11-0.59); NEUT ABS # 3.55 K/uL (1.4-6.5); PLATELET COUNT 233 K/uL (130-400); RED CELL DISTRIBUTION WIDTH CV 13.3 % (11.5-14.5); RED CELL DISTRIBUTION WIDTH SD 43.5 fL (36.4-46.3); WHITE BLOOD COUNT 5.82 K/uL (4.8-10.8)
[2018-01-15 20:01] LABS: PTT PATIENT 26.8 SECONDS (21.0-31.0)
[2018-01-15 20:13] LABS: ALBUMIN 3.7 gm/dl (3.4-5.0); ALT/SGPT 23 U/L (12-78); BLOOD UREA NITROGEN 17 mg/dl (7-18); CALCIUM 9.3 mg/dl (8.5-10.1); CARBON DIOXIDE 26 mmol/L (21-32); CREATININE 1.52 mg/dl (0.60-1.40); GLUCOSE 95 mg/dl (70-99); POTASSIUM 3.7 mmol/L (3.5-5.1); SODIUM 143 mmol/L (136-145)
[2018-01-15] MEDS ORDERED: RANI300T PO (20:15)
[2018-01-15] MEDS ORDERED: ONDA4TAB9 PO (20:15)
[2018-01-15 20:16] LABS: ALKALINE PHOSPHATASE 151 U/L (45-117); AST/SGOT 23 U/L (15-37); TOTAL PROTEIN 7.6 gm/dl (6.4-8.2)
--- NOTE | 2018-01-15 20:18 | DIAGNOSTIC IMAGING REPORT ---
HEAD CT NONCONTRAST CT DOSE: 537.48 mGy.cm HISTORY: Right-sided headache. Facial pain. Metastatic. TECHNIQUE: Multiaxial CT images of the head were performed without the use of intravenous contrast. Automated exposure control was utilized for this study. A dose lowering technique was utilized adhering to the principles of ALARA. Comparison: Head CT 07/08/2017. Findings: The paranasal sinuses and mastoid air cells are clear. The calvarium and skull base are intact. Slight progression of the area of calcification within the right temporal lobe. This previous measured 2.4 x 2.0 cm. This currently measures 2.9 x 2.5 cm. There is also mild progression of the surrounding vasogenic edema within the right temporal lobe. This results in slight mass effect along the right lateral ventricle and up to 3 mm of left midline shift which is also slightly progressed. Mild atrophy and microvascular ischemic changes are again noted. No acute infarct or acute hemorrhage identified. A 1.1 cm nodular focus of increased density within the right temporal lobe on image 8 has also slightly progressed but favors calcification rather than hemorrhage. Impression: 1. Slight progression of the area of calcification and surrounding vasogenic edema within the right temporal lobe. This remains highly suspicious for an underlying mass. 2. This results in slight increased mass effect along the right lateral ventricle and up to 3 mm of left midline shift. Electronically signed by: Sal Argueta M.D. 01/15/2018 8:16 PM Dictated Date/Time: 01/15/2018 8:10 PM
[2018-01-15 22:40] VITALS: BP 147/87; PULSE 70; O2SAT 96
== END 2018-01-15 22:40 | disposition home or self-care (01) ==
LOC: C.EDB 19:16 → C.EDC 22:40
DX: R04.0 Epistaxis (principal); D49.6 Neoplasm of unspecified behavior of brain; R51 Headache; R07.89 Other chest pain; I25.2 Old myocardial infarction; E78.5 Hyperlipidemia, unspecified; K21.9 Gastro-esophageal reflux disease without esophagitis; E73.9 Lactose intolerance, unspecified; Z87.891 Personal history of nicotine dependence; Z79.82 Long term (current) use of aspirin; Z95.0 Presence of cardiac pacemaker; Z79.899 Other long term (current) drug therapy; Z82.49 Family history of ischemic heart disease and other diseases of the circulatory system

== ENCOUNTER 2018-05-11 18:39 | Emergency (ER) | payer BC ==
[~2018-05-11] VITALS: Ht 172.7 cm; Wt 63.8 kg
[~2018-05-11 18:39] MED LIST changes: +ACET-1311 PO; +ANT25 PO; -CLB/200 PO; +FINA5TAB PO; -MECL1TAB40 PO; +MEDMARIJ PO; +ONDA4TAB9 PO; -OXYC-57 PO; +OXYC-609 PO; +RANI300T PO; -RXC5 PO; -SENN-61 PO; -TYLOTC500 PO
[2018-05-11 18:43] VITALS: TEMP 36.7; Ht 172.7 cm; Wt 63.8 kg
[2018-05-11] MEDS ORDERED: LORAZEPAM 0.5 MG TAB SL STA (20:12)
[2018-05-11] MEDS ORDERED: OPTIRAY 320 IV PRN (20:30)
[2018-05-11 20:52] LABS: BASO % 0.3 %; BASO ABS # 0.02 K/uL (0-0.2); EOS % 0.7 %; EOS ABS # 0.04 K/uL (0-0.5); HEMATOCRIT 36.4 % (42-52); LYMPH % 28.9 %; LYMPH ABS # 1.77 K/uL (1.2-3.4); MEAN CELL VOLUME 90.1 fL (80-100); MEAN CORPUSCULAR HEMOGLOBIN 29.7 pg (25-34); MEAN PLATELET VOLUME 10.8 fL (7.4-10.4); MONO % 9.5 %; MONO ABS # 0.58 K/uL (0.11-0.59); NEUT % 60.6 %; NEUT ABS # 3.71 K/uL (1.4-6.5); PLATELET COUNT 147 K/uL (130-400); RED CELL DISTRIBUTION WIDTH CV 15.5 % (11.5-14.5); RED CELL DISTRIBUTION WIDTH SD 51.2 fL (36.4-46.3); WHITE BLOOD COUNT 6.12 K/uL (4.8-10.8)
[2018-05-11 21:04] LABS: PTT PATIENT 23.2 SECONDS (21.0-31.0)
[2018-05-11] MEDS ORDERED: TURM1CAP4 PO (21:05)
[2018-05-11] MEDS ORDERED: TOPI50TA24 PO ×2 (21:05)
[2018-05-11] MEDS ORDERED: SENN-61 PO (21:10)
[2018-05-11 21:28] LABS: ALBUMIN 3.8 gm/dl (3.4-5.0); ALKALINE PHOSPHATASE 88 U/L (45-117); ALT/SGPT 23 U/L (12-78); AST/SGOT 22 U/L (15-37); BLOOD UREA NITROGEN 18 mg/dl (7-18); CALCIUM 9.2 mg/dl (8.5-10.1); CARBON DIOXIDE 30 mmol/L (21-32); GLUCOSE 95 mg/dl (70-99); LIPASE 140 U/L (73-393); POTASSIUM 3.5 mmol/L (3.5-5.1); SODIUM 142 mmol/L (136-145); TOTAL PROTEIN 7.1 gm/dl (6.4-8.2)
[2018-05-11 21:31] VITALS: O2SAT 98
--- NOTE | 2018-05-11 22:15 | DIAGNOSTIC IMAGING REPORT ---
HEAD COMBO CLINICAL HISTORY: 72 years-old Male presenting with severe headache, reports prior "mass". TECHNIQUE: Multidetector CT imaging of the head was performed before and after the administration of intravenous contrast. IV contrast: 115 mL of Optiray 320. A dose lowering technique was used consistent with the principles of ALARA (as low as reasonably achievable). COMPARISON: Noncontrast CT head from 01/15/2018 and contrast-enhanced CT head from 07/08/2017. CT DOSE (mGy.cm): The estimated cumulative dose is 1203.96 mGy.cm. 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 Significant regional mass effect arising from the presence of the enlarging right temporal lobe mass. There is increased right to left midline shift, which now measures 6 mm. The temporal horn of the right lateral ventricle is effaced. Diffuse sulcal effacement along the right cerebral hemisphere has increased from prior. The partially cystic and partially calcified intra-axial mass in the right temporal lobe demonstrates significant enhancement along the peripheral portion of the mass primarily towards exterior of the brain parenchyma (series 4 image 14). The margins of the mass are difficult to accurately measure though the cystic component is easily measured. The cystic component now measures 3.8 x 3.2 cm in maximal axial dimension comparison to most recent prior when it measured 1.9 x 1.8 cm. The peripheral enhancement is new since July. Persistent hypodensity associated with the anterior and inferior right temporal lobe, which may represent direct invasion by tumor or vasogenic edema. No convincing evidence of hemorrhage. The degree of dilatation of the left lateral ventricle is not significant changed from prior. No convincing evidence of ventricular entrapment. No extra-axial fluid collection. No evidence of overlying osseous invasion. Calvarium intact. IMPRESSION: 1. 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 Worsened mass effect and midline shift. No evidence of hemorrhage or other acute intracranial pathology. Electronically signed by: Chandler Romano M.D. 05/11/2018 10:14 PM Dictated Date/Time: 05/11/2018 10:05 PM
--- NOTE | 2018-05-11 23:40 | EMERGENCY ROOM VISIT NOTE ---
History Report prepared by Belén: Aparna Hummel Under the Supervision of: Dr. Davin Duong M.D. 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 He notes his head feels like it is going to explode, he is dizzy, and he has blurry vision. He describes his pain as pressure and notes he has been under a lot of stress as his recently this April. The patient also notes that he has been confused since his and his headaches have worsened. He is accompanied by his daughter who reports that her father has been having headaches for months. She states that over the past 2 years, she has noticed her father has had mood changes and increased confusion which is abnormal for him. The patient states that when he was at [facility], they did a CT scan which showed the patient had a right lobe mass. Pt denies LOC, fevers, chills, diaphoresis, neck pain, chest pain, breathing difficulties, nausea, vomiting, abdominal pain, back pain, melena, hematochezia, urinary symptoms, numbness, weakness, lymphadenopathy, rash, or other complaints. His PCP is Dr. Peter Menezes and he had back surgery in November. 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 A total of ten systems were reviewed and were otherwise negative. Past Medical & Surgical Medical Problems: (1) Chronic back pain (2) Diverticulosis Colon (W/O Ment Of Hemorrhage) (3) Esophageal Reflux (4) Hyperlipidemia Nec/Nos (5) Hypertrophy (Benign) Of Prostate W/O Urinary Obst & Oth Luts (6) Lumbar stenosis with neurogenic claudication (7) Osteoarthros Nos-Ankle (8) Osteoarthros Nos-Unspec (9) Pacemaker (10) Sciatica (11) Syncope Surgical Problems: (1) History of back surgery Family History Heart disease Social History Smoking Status: Former Smoker Drug Use: none Marital Status: Housing Status: lives with significant other Current/Historical Medications Scheduled Acetaminophen (Tylenol), 325 MG PO Q4 Ascorbic Acid (Vitamin C), 500 MG PO QAM Aspirin Enteric Coated (Ecotrin Or Generic), 81 MG PO QAM Atorvastatin (Lipitor), 20 MG PO 3XWEEK Calcium Carbonate (Tums), 2 TAB PO PRN Cholecalciferol (Vitamin D3), 1 TAB PO QPM Dexamethasone (Decadron), 4 MG PO Q6 Finasteride (Proscar), 5 MG PO DAILY Isosorbide Mononitrate Ext Rel (Imdur Ext Rel), 30 MG PO QAM Marijuana, Home Medication (Marijuana, Home Medication), 1 DOSE PO DAILY Meclizine HCl (Meclizine HCl), 1 TAB PO DAILY Metoprolol Tartrate (Lopressor) (Lopressor), 25 MG PO BID Multivitamin (Multivitamin), 1 TAB PO QPM Polyethylene Glycol 3350 (Miralax), 17 GM PO HS Probiotic Product (Probiotic), 1 TAB PO QAM Ranitidine Hcl (Zantac), 300 MG PO HS Senna (Senokot), 1 TAB PO HS Topiramate (Topamax), 50 MG PO QAM Topiramate (Topamax), 100 MG PO QPM Turmeric (Curcuma Longa) (Turmeric), 1 CAP PO DAILY Scheduled PRN Ondansetron (Ondansetron HCl), 8 MG PO PRN PRN for Nausea or Vomiting Oxycodone HCl (Oxycodone HCl), 5-10 MG PO Q4 PRN for Pain Allergies Coded Allergies: Lactose Intolerance (GI) (Verified Adverse Reaction, Intermediate, GI UPSET, 05/11/18) Rosuvastatin (Verified Adverse Reaction, Unknown, muscle aches, 05/11/18) Physical Exam Vital Signs Date Time Temp Pulse Resp B/P (MAP) Pulse Ox O2 Delivery O2 Flow Rate FiO2 05/11/18 23:48 58 20 134/71 100 Room Air 05/11/18 22:29 60 20 135/84 100 Room Air 05/11/18 21:51 60 05/11/18 21:31 98 Room Air 05/11/18 21:15 75 18 138/72 98 Room Air 05/11/18 18:43 36.7 78 17 148/70 98 Room Air Physical Exam GENERAL: Awake, alert, well-appearing, in no distress GENERAL: Awake, alert, well appearing, no distress HENT: Normocephalic, atraumatic. TM's normal. Oropharynx unremarkable. EYES: PERRL. EOMI. Normal conjunctiva. Sclera non-icteric. NECK: Supple. No nuchal rigidity. FROM. No bruit. RESPIRATORY: Breath sounds equal. No wheezes. No rhonchi. Normal respiratory effort. CARDIAC: Normal rate. Regular rhythm. No murmurs. No rubs. No JVD. GI: Soft, non distended. No tenderness to palpation. No rebound or guarding. No masses. RECTAL: Deferred. MUSCULOSKELETAL: Unremarkable. No edema. No discoloration. Gross motor strength symmetric. NEURO: Cranial nerves 2-12 grossly intact. Normal sensorium. No sensory or motor deficits noted. Speech normal. No pronator drift. Easily agitated, but no focal deficits. Normal rapid alternating movements. Difficult to asses drift because he has chronic shoulder problems on the right side SKIN: No rash or jaundice noted. LYMPH: No adenopathy. Medical Decision & Procedures ER Provider Diagnostic Interpretation: Radiology results as stated below per my review and radiologist interpretation: HEAD COMBO CLINICAL HISTORY: 72 years-old Male presenting with severe headache, reports prior "mass". TECHNIQUE: Multidetector CT imaging of the head was performed before and after the administration of intravenous contrast. IV contrast: 115 mL of Optiray 320. A dose lowering technique was used consistent with the principles of ALARA (as low as reasonably achievable). COMPARISON: Noncontrast CT head from 01/15/2018 and contrast-enhanced CT head from 07/08/2017. CT DOSE (mGy.cm): The estimated cumulative dose is 1203.96 mGy.cm. FINDINGS: [employer] topogram: Unremarkable. Significant regional mass effect arising from the presence of the enlarging right temporal lobe mass. There is increased right to left midline shift, which now measures 6 mm. The temporal horn of the right lateral ventricle is effaced. Diffuse sulcal effacement along the right cerebral hemisphere has increased from prior. The partially cystic and partially calcified intra-axial mass in the right temporal lobe demonstrates significant enhancement along the peripheral portion of the mass primarily towards exterior of the brain parenchyma (series 4 image 14). The margins of the mass are difficult to accurately measure though the cystic component is easily measured. The cystic component now measures 3.8 x 3.2 cm in maximal axial dimension comparison to most recent prior when it measured 1.9 x 1.8 cm. The peripheral enhancement is new since July. Persistent hypodensity associated with the anterior and inferior right temporal lobe, which may represent direct invasion by tumor or vasogenic edema. No convincing evidence of hemorrhage. The degree of dilatation of the left lateral ventricle is not significant changed from prior. No convincing evidence of ventricular entrapment. No extra-axial fluid collection. No evidence of overlying osseous invasion. Calvarium intact. IMPRESSION: 1. 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 Worsened mass effect and midline shift. No evidence of hemorrhage or other acute intracranial pathology. Electronically signed by: Chandler Romano M.D. 05/11/2018 10:14 PM Laboratory Results 05/11/18 20:40 Red Blood Count 4.04, Mean Corpuscular Volume 90.1, Mean Corpuscular Hemoglobin 29.7, Mean Corpuscular Hemoglobin Concent 33.0, Mean Platelet Volume 10.8, Neutrophils (%) (Auto) 60.6, Lymphocytes (%) (Auto) 28.9, Monocytes (%) (Auto) 9.5, Eosinophils (%) (Auto) 0.7, Basophils (%) (Auto) 0.3, Neutrophils # (Auto) 3.71, Lymphocytes # (Auto) 1.77, Monocytes # (Auto) 0.58, Eosinophils # (Auto) 0.04, Basophils # (Auto) 0.02 05/11/18 20:40 Test 05/11/18 20:00 05/11/18 20:40 Urine Color YELLOW Urine Appearance CLEAR (CLEAR) Urine pH 7.5 (4.5-7.5) Urine Specific [place] 1.007 (1.000-1.030) Urine Protein NEG (NEG) Urine Glucose (UA) NEG (NEG) Urine Ketones NEG (NEG) Urine Occult Blood NEG (NEG) Urine Nitrite NEG (NEG) Urine Bilirubin NEG (NEG) Urine Urobilinogen NEG (NEG) Urine Leukocyte Esterase NEG (NEG) Urine WBC (Auto) /hpf (0-5) Urine RBC (Auto) /hpf (0-4) Urine Hyaline Casts (Auto) /lpf (0-5) Urine Epithelial Cells (Auto) /lpf (0-5) Urine Bacteria (Auto) (NEG) Urine RBC 0-4 /hpf (0-4) Urine WBC 0 /hpf (0-5) Urine Epithelial Cells 0-5 /lpf (0-5) Urine Bacteria NEG (NEG) White Blood Count 6.12 K/uL (4.8-10.8) Red Blood Count 4.04 M/uL (4.7-6.1) Hemoglobin 12.0 g/dL (14.0-18.0) Hematocrit 36.4 % (42-52) Mean Corpuscular Volume 90.1 fL (80-100) Mean Corpuscular Hemoglobin 29.7 pg (25-34) Mean Corpuscular Hemoglobin Concent 33.0 g/dl (32-36) Platelet Count 147 K/uL (130-400) Mean Platelet Volume 10.8 fL (7.4-10.4) Neutrophils (%) (Auto) 60.6 % Lymphocytes (%) (Auto) 28.9 % Monocytes (%) (Auto) 9.5 % Eosinophils (%) (Auto) 0.7 % Basophils (%) (Auto) 0.3 % Neutrophils # (Auto) 3.71 K/uL (1.4-6.5) Lymphocytes # (Auto) 1.77 K/uL (1.2-3.4) Monocytes # (Auto) 0.58 K/uL (0.11-0.59) Eosinophils # (Auto) 0.04 K/uL (0-0.5) Basophils # (Auto) 0.02 K/uL (0-0.2) RDW Standard Deviation 51.2 fL (36.4-46.3) RDW Coefficient of Variation 15.5 % (11.5-14.5) Immature Granulocyte % (Auto) 0.0 % Immature Granulocyte # (Auto) 0.00 K/uL (0.00-0.02) Erythrocyte Sedimentation Rate 10 mm/hr (0-14) Prothrombin Time 10.0 SECONDS (9.0-12.0) Prothromb Time International Ratio 1.0 (0.9-1.1) Activated Partial Thromboplast Time 23.2 SECONDS (21.0-31.0) Partial Thromboplastin Ratio 0.9 Anion Gap 5.0 mmol/L (3-11) Est Creatinine Clear Calc Drug Dose 45.7 ml/min Estimated GFR () 62.7 Estimated GFR (Non- 54.1 BUN/Creatinine Ratio 13.8 (10-20) Calcium Level 9.2 mg/dl (8.5-10.1) Magnesium Level 2.6 mg/dl (1.8-2.4) Total Bilirubin 0.2 mg/dl (0.2-1) Direct Bilirubin < 0.1 mg/dl (0-0.2) Aspartate Amino Transf (AST/SGOT) 22 U/L (15-37) Alanine Aminotransferase (ALT/SGPT) 23 U/L (12-78) Alkaline Phosphatase 88 U/L (45-117) C-Reactive Protein < 0.29 mg/dl (0-0.29) Total Protein 7.1 gm/dl (6.4-8.2) Albumin 3.8 gm/dl (3.4-5.0) Lipase 140 U/L (73-393) Thyroid Stimulating Hormone (TSH) 2.440 uIu/ml (0.300-4.500) Laboratory results reviewed by me Medications Administered Medications (Trade) Dose Ordered Sig/Jasper Route Start Time Stop Time Status Last Admin Dose Admin Lorazepam (Ativan Tab) 0.5 mg NOW STAT SL 05/11/18 20:12 05/11/18 20:17 DC 05/11/18 20:51 0.5 MG Dexamethasone Sodium Phosphate (Decadron Inj) 10 mg STK-MED ONCE .ROUTE 05/11/18 23:43 05/11/18 23:44 DC 05/11/18 23:45 10 MG ECG Per My Interpretation Indication: other (headache) Rate (beats per minute): 60 Rhythm: other (paced rhythm) Findings: other (no ST elevation or depression, no PVCs or PACs) ED Course 2004: The patient was evaluated in room C3. A complete history and physical exam was performed. 2011: Ordered Lorazepam 0.5 mg SL 2131: I checked on the patient at this time. He is on his way to [place]. 0: Called [facility] transfer center for Neurosurgery. 2320: I reevaluated the patient at this time. 2330: Called 2336: Discussed with Dr. Jack of [facility] neurosurgery. Recommended IV Decadron now and to start Decadron 4 mg every 6 hours with an H2 toi daily the patient will be seen in clinic follow-up this week. 2340: I reevaluated the patient at this time. IV Decadron ordered. The patient and daughter feel comfortable with the plan. Return instructions outlined and the patient was discharged. Medical Decision Prior records/ancillary studies reviewed. Triage Nursing notes reviewed and agree them. The patient's history was concerning for headache. Differential diagnosis: Etiologies such as migraine headache, meningitis, sinusitis, CO exposure, ICH, SAH, infection, tumor, headache, sinus thrombosis, arterial dissection, as well as others were entertained. Physical examination findings: As above. Non-focal. ER treatment provided: Sublingual Ativan On reassessment the patient felt better. IV Decadron Diagnostics interpreted by me: ECG: No ischemia The labs revealed an unremarkable CBC and chemistry panel except for mild anemia. Urinalysis negative. ESR negative peer Imaging studies: CT scans as above Consultation: A consultation was placed with Dr. Jack of [facility] neurosurgery. I discussed the case. The patient was recommended to have Decadron and close follow-up in the neurosurgery clinic. He had taken the patient's information and notified me that the patient will be contacted tomorrow. He felt that the patient was stable for clinic follow-up this week. The patient and family feel comfortable with this plan. I gave my usual and customary discussion regarding this issue. By the evaluation outlined above other emergent etiologies such as those listed in the differential, as well as others, were deemed relatively unlikely. The patient was educated about the findings as listed above. All questions were answered and the patient was pleased with the treatment. Return instructions were outlined and the patient was discharged in stable condition. The patient was referred to [facility] neurosurgery for follow-up for a recheck of the current condition. Medication Reconcilliation Current Medication List: was personally reviewed by me Blood Pressure Screening Patient's blood pressure: Elevated blood pressure Blood pressure disposition: Elevated BP felt to be situational Consults Time Called: 2223 Impression Primary Impression: Intracranial mass Additional Impression: Headache Scribe Attestation The scribe's documentation has been prepared under my direction and personally reviewed by me in its entirety. I confirm that the note above accurately reflects all work, treatment, procedures, and medical decision making performed by me. Departure Information Dispostion Home / Self-Care Prescriptions Dexamethasone (DECADRON) 4 Mg Tab 4 MG PO Q6, #28 TAB Prov: Davin Duong MD 05/11/18 Referrals Peter Menezes MD (PCP) Patient Instructions My [facility] Additional Instructions Start Decadron 4 mg every 6 hours. Begin this tomorrow at lunchtime. Continue current medications. Follow-up with [facility] neurosurgery. I did discuss your case with Dr. Jack. The clinic should be calling you tomorrow. If you do not hear from them by tomorrow early afternoon call [phone] and be connected to the neurosurgery clinic. Return to the ER for headache, passing out, difficulty breathing, fevers, numbness, tingling, worsening of your condition, or as needed. Problem Qualifiers
[2018-05-11] MEDS ORDERED: DEXAMETHASONE SOD INJ 10 MG/ML VIAL ONE (23:43)
[2018-05-11] MEDS ORDERED: DEXAMETHASONE **PF** INJ 10 MG/ML VIAL IV ONE (23:45)
[2018-05-11 23:48] VITALS: BP 134/71; PULSE 58; O2SAT 100
[2018-05-11] MEDS ORDERED: DXM/4 PO (23:52)
== END 2018-05-12 00:07 | disposition home or self-care (01) ==
LOC: C.EDB 18:41 → C.EDC 05-12 00:07
DX: R90.0 Intracranial space-occupying lesion found on diagnostic imaging of central nervous system (principal); R51 Headache; E78.5 Hyperlipidemia, unspecified; K21.9 Gastro-esophageal reflux disease without esophagitis; N40.0 Benign prostatic hyperplasia without lower urinary tract symptoms; Z79.82 Long term (current) use of aspirin; Z95.0 Presence of cardiac pacemaker; Z79.899 Other long term (current) drug therapy; Z87.891 Personal history of nicotine dependence; Z88.8 Allergy status to other drugs, medicaments and biological substances; Z91.011 Allergy to milk products

== ENCOUNTER 2018-10-08 15:09 | Observation (INO) ==
[2018-10-08] MEDS ORDERED: MoRPHine SULFATE 4 MG/ML 1 ML CARP\\VIAL IV STA (16:13)
[2018-10-08] MEDS ORDERED: ONDANSETRON INJ 2 MG/ML 2 ML VIAL IV STA (16:13)
[2018-10-08 16:28] LABS: Basophils # (auto) 0.02 K/uL (0-0.2); Basophils % (auto) 0.4 %; Eosinophils # (auto) 0.06 K/uL (0-0.5); Eosinophils % (auto) 1.2 %; Hematocrit (blood only) 35.7 % (42-52); Hemoglobin 12.1 g/dL (14.0-18.0); Lymphocytes # (auto) 0.73 K/uL (1.2-3.4); Lymphocytes % (auto) 14.7 %; Mean Corpuscular Hgb Conc 33.9 g/dL (32-36); Mean Corpuscular Volume 93.9 fL (80-100); Mean Platelet Volume 10.5 fL (7.4-10.4); Monocytes # (auto) 0.45 K/uL (0.11-0.59); Monocytes % (auto) 9.1 %; Neutrophils % (auto) 74.6 %; Platelet Count 151 K/uL (130-400); RDW Coefficient of Variation 14.1 % (11.5-14.5); RDW Standard Deviation 48.3 fL (36.4-46.3); White Blood Count 4.96 K/uL (4.8-10.8)
[2018-10-08 16:53] LABS: Albumin Level 3.9 gm/dl (3.4-5.0); BUN Creatinine Ratio 10.2 (10-20); Bilirubin Direct 0.1 mg/dl (0-0.2); Calcium 9.6 mg/dl (8.5-10.1); Creatinine Clr Calc Pharmacy 39.4 ml/min; Est GFR (African American) 52.8; Est GFR (Non-African American) 45.6; Potassium 3.5 mmol/L (3.5-5.1)
[2018-10-08 16:56] LABS: Bilirubin,Total 0.3 mg/dl (0.2-1); Total Protein 7.5 gm/dl (6.4-8.2)
--- NOTE | 2018-10-08 17:16 | CT Scan Report ---
CT head/brain wo con CT DOSE: 537.48 mGy.cm HISTORY: Trauma. Pain. Mental status change. fall eval for bleed TECHNIQUE: Multiaxial CT images of the head were performed without the use of intravenous contrast. A dose lowering technique was utilized adhering to the principles of ALARA. Comparison: 05/11/2018 Findings: Interval right frontotemporal craniotomy. Craniotomy flap appears to be aligned appropriate ly Small amount of residual high density components within the right temporal lobe. Postoperative enceph alomalacia is present. Mild dural thickening deep to the craniotomy flap considered nonacute. Anterior system is now midline. No significant midline shift. Mild reactive vasogenic edema on a post operative basis is present. No acute intracranial hemorrhage. Impression: 1. Postoperative changes consistent with a partial right temporal lobe mass resection and craniotomy. 2. Moderate residual high density components within the operative field unchanged to slightly improve d from the prior study. 3. No acute process is identified. The above report was generated using voice recognition software. It may contain grammatical, syntax or spelling errors. Electronically signed by: Wilver Marr M.D. 10/08/2018 5:15 PM
--- NOTE | 2018-10-08 17:27 | CT Scan Report ---
CT lumbar spine wo con HISTORY: 73 years-old Male fall eval for fx acute posttraumatic low back pain COMPARISON: Lumbar spine CT 10/03/2017, lumbar spine fluoroscopic images 11/28/2017 TECHNIQUE: Multiple axial CT images of the lumbar spine were obtained without the use of contrast. A dose lowering technique was used consistent with the principals of CHERIE. FINDINGS: Extensive postoperative changes of the lumbar spine redemonstrated. Prior laminectomy at L2-L5 with p osterior interbody fabián and screw fusion. Bilateral iliac bolts are noted with pedicle screws on the r ight at L4-S1. Pedicle screws in the left are seen at L5 and S1. Minimal lucency surrounds the bilate ral S1 pedicle screws. Prior hardware removal at the L2 and L3 levels. Partial bony fusion of the ernie tebral bodies extending from L2-L5. Multilevel posterior spondylitic spurring with posterior disc ost eophyte complex formations seen most notably at L1-L2 and L2-L3. Multilevel facet arthrosis. 23 degre es dextroscoliosis measured from L2-L4. No acute fracture or subluxation identified. Multilevel endpl ate degenerative changes. Evaluation of the central canal and neuroforamina is better assessed by MRI . No significant change identified involving the central canal or neuroforaminal from comparison stud y dated 10/03/2017. Extensive calcification of the abdominal aorta and iliac arteries with infrarenal ectasia measuring u p to 2.7 cm on image 142 series 5. Partially imaged wall thickening of the urinary bladder lumen. No adenopathy. IMPRESSION: 1. No acute fracture or subluxation. 2. Extensive postoperative changes of the lumbar spine as detailed above. Minimal lucency surrounding the bilateral S1 pedicle screws may reflect associated hardware loosening. 3. Dextroscoliosis. The above report was generated using voice recognition software. It may contain grammatical, syntax o r spelling errors. Electronically signed by: Nomi Nance M.D. 10/08/2018 5:25 PM
--- NOTE | 2018-10-08 20:22 | History & Physical Report ---
Date of Service October 08, 2018 Assessment & Plan (1) Ambulatory dysfunction: Patient would most likely be better served in a facility with nursing assistance, therapy. Attempt to have patient placed from ER was unsuccessful. He is not safe to go home alone due to gait instability and fequent falls * OBservation to medical floor * PT/OT evaluation * Case management evaluation * Fall precautions * (2) CAD (coronary artery disease): Patient with no chest pain. * Continue home medications - ASA, Atorvastatin, Metoprolol * (3) BPH (benign prostatic hyperplasia): Stable. Chronic * Continue Finasteride * (4) Brain malignancy: Patient receiving XRT * Continue plan per Oncology and Rad-Onc (5) GERD (gastroesophageal reflux disease): Stable. Chronic * Continue Ranitidine * F/E/N - Heplock. Electrolytes within normal limits. Creatinine at baseline. Heart healthy diet as tolerated Ppx - Lovenox for DVT prophylaxis Code - DNR per discussion with patient Dispo - Observation to medical floor History of Present Illness Chief Complaint: ambulatory dysfunction Primary Care Provider: Peter Menezes Mr. 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 Patient's this past April and he has been having a difficult time at home. He was subsequently diagnosed with brain cancer, had craniotomy with removal of tumor and radiation therapy. He has been having more frequent falls at home and difficulty keeping up with daily activities. ER Course: Morphine, Zofran Allergies Allergy/AdvReac Type Severity Reaction Status Date / Time lactose AdvReac Intermediate GI UPSET Verified 08/17/18 12:14 rosuvastatin AdvReac Unknown muscle Verified 08/17/18 12:14 aches Home Medications Home Medications Medication Instructions Recorded Confirmed Type Saccharomyces boulardii 0 mg 10/08/18 History acetaminophen 650 mg PO Q8H PRN 10/08/18 10/08/18 History aspirin [Aspir-81] 81 mg PO DAILY 10/08/18 10/08/18 History atorvastatin 20 mg PO 3XWK 10/08/18 10/08/18 History calcium carbonate [Tums] 0 mg PO HS 10/08/18 10/08/18 History cholecalciferol (vitamin D3) 1,000 unit PO HS 10/08/18 10/08/18 History finasteride 5 mg PO DAILY 10/08/18 10/08/18 History meclizine 0 mg PO 10/08/18 History metoprolol tartrate 25 mg PO BID 10/08/18 10/08/18 History ondansetron 8 mg PO BID PRN 10/08/18 10/08/18 History polyethylene glycol 3350 17 g PO HS 10/08/18 10/08/18 History ranitidine HCl 300 mg PO DAILY 10/08/18 10/08/18 History sennosides [Senokot] 0 mg PO BID PRN 10/08/18 10/08/18 History topiramate 50 mg PO BID 10/08/18 10/08/18 History Past Med/Surg History Medical History Brain malignancy BPH (benign prostatic hyperplasia) (Acute) Cardiac disease (Acute) Chronic low back pain (Acute) Diverticulosis (Acute) Esophageal reflux (Acute) Hyperlipidemia (Acute) IBS (irritable bowel syndrome) (Acute) Lumbar stenosis with neurogenic claudication (Acute) Myocardial infarction (Acute) Osteoarthritis (Acute) Pacemaker (Acute) Pacemaker (Acute) Retinal tear of right eye (Acute) SA node dysfunction (Acute) Surgical History H/O craniotomy H/O shoulder surgery (Acute) History of bilateral carpal tunnel release (Acute) History of bunionectomy of right great toe (Acute) History of cardiac cath (Acute) History of cataract surgery (Acute) History of esophagogastroduodenoscopy (Acute) History of lumbar laminectomy for spinal cord decompression (Acute) Hx laparoscopic cholecystectomy (Acute) Hx of colonoscopy (Acute) S/P LASIK surgery (Acute) S/P laser trabeculoplasty of eye (Acute) Family History Mother , 64yo;lung cancer;[place] No problems noted. Father , 57yo;[place] No problems noted. Brother No problems noted. Sister No problems noted. Daughter No problems noted. Social History marital status: Current Living Situation: Alone current occupational status: retired current occupation: Worked at [employer] in past Feels Safe at Home: Yes Smoking Status: Never smoker Tobacco Type: cigarettes Second Hand Exposure: Yes Hx Alcohol Use: No Hx Substance Use: No Beliefs That Will Affect Care: None Preferred Language: Tam[place] caffeine: Yes (3 cups/day) during the past year weight has: decreased > 10 lbs Review of Systems All systems reviewed & are unremarkable except as noted in HPI & below Physical Exam 2 Vital Signs (Past 24 Hours): Last Vital Signs Temp 37 C 10/08/18 15:16 Pulse 68 10/08/18 18:38 Resp 18 10/08/18 18:38 BP 139/79 10/08/18 18:38 Pulse Ox 98 10/08/18 18:38 Physical Exam: General: patient resting comfortably, NAD, non-toxic in appearance, AA&O x 4 Skin: warm, dry, intact, no rashes or lesions HEENT: NC/AT, PERRL, EOMI, anicteric sclera, conjunctiva without injection, external ear normal to inspection and nontender, nares patent, moist mucus membranes, dentition intact, no oropharyngeal lesions, neck supple, trachea midline, no LAD, no thyromegaly, no JVD, craniotomy scar well healed Heart: +S1/S2, regular, no m/r/g Lungs: equal air entry bilaterally, no rales/rhonchi/wheezes Abd: +BS, soft, NT/ND, no masses/organomegaly/ascites Ext: warm, 2+ pulses in UE/LE bilaterally, no clubbing/cyanosis or edema Neuro: nonfocal, patient AA&O x 4, speech intact, no facial droop, moving all extremities on command with equal strength 5/5 Results & Data Laboratory Results Lab Results 10/08/18 10/08/18 Range/Units 15:20 15:20 WBC 4.96 (4.8-10.8) K/uL RBC 3.80 L (4.7-6.1) M/uL Hgb 12.1 L (14.0-18.0) g/dL Hct 35.7 L (42-52) % MCV 93.9 (80-100) fL MCH 31.8 (25-34) pg MCHC 33.9 (32-36) g/dL RDW Std Deviation 48.3 H (36.4-46.3) fL RDW Coeff of Lora 14.1 (11.5-14.5) % Plt Count 151 (130-400) K/uL MPV 10.5 H (7.4-10.4) fL Immature Gran % (Auto) 0.0 % Neut % (Auto) 74.6 % Lymph % (Auto) 14.7 % [place] % (Auto) 9.1 % Eos % (Auto) 1.2 % Baso % (Auto) 0.4 % Immature Gran # (Auto) 0.00 (0.00-0.02) K/uL Neut # (Auto) 3.70 (1.4-6.5) K/uL Lymph # (Auto) 0.73 L (1.2-3.4) K/uL [place] # (Auto) 0.45 (0.11-0.59) K/uL Eos # (Auto) 0.06 (0-0.5) K/uL Baso # (Auto) 0.02 (0-0.2) K/uL Sodium 141 (136-145) mmol/L Potassium 3.5 (3.5-5.1) mmol/L Chloride 108 H (98-107) mmol/L Carbon Dioxide 29 (21-32) mmol/L Anion Gap 4.0 (3-11) BUN 15 (7-18) mg/dl Creatinine 1.49 H (0.6-1.4) mg/dl Est Cr Clr Drug Dosing 39.4 ml/min Est GFR ( Amer) 52.8 Est GFR (Non-Af Amer) 45.6 BUN/Creatinine Ratio 10.2 (10-20) Glucose 89 (70-99) mg/dl Calcium 9.6 (8.5-10.1) mg/dl Total Bilirubin 0.3 (0.2-1) mg/dl Direct Bilirubin 0.1 (0-0.2) mg/dl AST 17 (15-37) U/L ALT 22 (12-78) U/L Alkaline Phosphatase 89 (45-117) U/L Total Protein 7.5 (6.4-8.2) gm/dl Albumin 3.9 (3.4-5.0) gm/dl Diagnostic Findings CT lumbar spine wo con HISTORY: 73 years-old Male fall eval for fx acute posttraumatic low back pain COMPARISON: Lumbar spine CT 10/03/2017, lumbar spine fluoroscopic images 2017 TECHNIQUE: Multiple axial CT images of the lumbar spine were obtained without the use of contrast. A dose lowering technique was used consistent with the principals of CHERIE. FINDINGS: Extensive postoperative changes of the lumbar spine redemonstrated. Prior laminectomy at L2-L5 with posterior interbody fabián and screw fusion. Bilateral iliac bolts are noted with pedicle screws on the right at L4-S1. Pedicle screws in the left are seen at L5 and S1. Minimal lucency surrounds the bilateral S1 pedicle screws. Prior hardware removal at the L2 and L3 levels. Partial bony fusion of the vertebral bodies extending from L2-L5. Multilevel posterior spondylitic spurring with posterior disc osteophyte complex formations seen most notably at L1-L2 and L2-L3. Multilevel facet arthrosis. 23 degrees dextroscoliosis measured from L2-L4. No acute fracture or subluxation identified. Multilevel endplate degenerative changes. Evaluation of the central canal and neuroforamina is better assessed by MRI. No significant change identified involving the central canal or neuroforaminal from comparison study dated 10/03/2017. Extensive calcification of the abdominal aorta and iliac arteries with infrarenal ectasia measuring up to 2.7 cm on image 142 series 5. Partially imaged wall thickening of the urinary bladder lumen. No adenopathy. IMPRESSION: 1. No acute fracture or subluxation. 2. Extensive postoperative changes of the lumbar spine as detailed above. Minimal lucency surrounding the bilateral S1 pedicle screws may reflect associated hardware loosening. 3. Dextroscoliosis. The above report was generated using voice recognition software. It may contain grammatical, syntax or spelling errors. Electronically signed by: Nomi Nance M.D. 10/08/2018 5:25 PM Dictated: 10/08/18 1716 Transcribed: 10/08/[address] head/brain wo con CT DOSE: 537.48 mGy.cm HISTORY: Trauma. Pain. Mental status change. fall eval for bleed TECHNIQUE: Multiaxial CT images of the head were performed without the use of intravenous contrast. A dose lowering technique was utilized adhering to the principles of ALARA. Comparison: 05/11/2018 Findings: Interval right frontotemporal craniotomy. Craniotomy flap appears to be aligned appropriately Small amount of residual high density components within the right temporal lobe. Postoperative encephalomalacia is present. Mild dural thickening deep to the craniotomy flap considered nonacute. Anterior system is now midline. No significant midline shift. Mild reactive vasogenic edema on a postoperative basis is present. No acute intracranial hemorrhage. Impression: 1. Postoperative changes consistent with a partial right temporal lobe mass resection and craniotomy. 2. Moderate residual high density components within the operative field unchanged to slightly improved from the prior study. 3. No acute process is identified. The above report was generated using voice recognition software. It may contain grammatical, syntax or spelling errors. Electronically signed by: Wilver Marr M.D. 10/08/2018 5:15 PM Dictated: 10/08/181710 Transcribed: 10/08/181710 Code Status & VTE Plan Code Status dnr VTE Prophylaxis Plan VTE Prophylaxis will be ordered: Yes Critical Care Time Critical Care Time: No _ (1) BPH (benign prostatic hyperplasia) Lower urinary tract symptom presence: symptoms absent Qualified Code(s): N40.0 - Benign prostatic hyperplasia without lower urinary tract symptoms (2) CAD (coronary artery disease) Coronary Disease-Associated Artery/Lesion type: [place] artery [place] vs. transplanted heart: [place] heart Associated angina: without angina Qualified Code(s): I25.10 - Atherosclerotic heart disease of [place] coronary artery without angina pectoris (3) GERD (gastroesophageal reflux disease) Esophagitis presence: esophagitis presence not specified Qualified Code(s): K21.9 - Gastro-esophageal reflux disease without esophagitis (4) Brain malignancy Malignant neoplasm of brain location: temporal lobe Qualified Code(s): C71.2 - Malignant neoplasm of temporal lobe
[2018-10-08] MEDS ORDERED: SENNA 8.6 MG TAB PO PRN (22:10)
[2018-10-08] MEDS ORDERED: ONDANSETRON 8MG OD TAB PO PRN (22:10)
--- NOTE | 2018-10-08 22:58 | Emergency Department Note ---
Entered by Shanon Abreu acting as a scribe for Ryan Esqueda MD History of Present Illness General Chief complaint: Back Injury/Pain Time Seen by Provider: 10/08/18 15:56 Source: patient Mode of arrival: EMS Limitations: no limitations History of Present Illness Provider complaint: Back pain Onset (ago): day(s) (a few days ago) Location: back Radiation: non-radiation Pain Consistency: + other (worsening) Maximum Pain Intensity: 9 Quality: + other (pain) Relieved By: + none Associated symptoms: + headaches, + syncope and + other (Additional symptoms: leg achiness. Denies: loss of consciousness, bowel/bladder incontinence, numbness in private area, abdominal pain); no chest pain, no fever/chills and no nausea/vomiting The patient is a 73 year old male with a history of brain malignancy, BPH, GERD , a [place], and CAD who presents to the Emergency Room with complaints of worsening back pain starting a few days ago. The patient reports that he has chronic back pain, for which he takes Oxycodone. He states that he had pins placed in his the soft tissue of his back, which damaged the nerves in his back. He notes that his back surgery was revised by Dr. Alberto, who put the pins in his spine instead. He reports that he did called Dr. Alberto about his worsening back pain but was unable to get an appointment until October 20. He states that he did not try calling his PCP. The patient also complains of headaches that have continued through his brain tumor resection and radiation therapy treatment. He notes that his head pain was initially sharp before surgery, but has now become duller. He states that his pain is located around his right eye and that he currently has a headache. The patient further complains of 4 episodes of falling secondary to achy but not weak legs over the past 2.5 months. He reports that he last fell on October 03 but did not experience any loss of consciousness. He denies any vomiting, fevers, chest pain , bowel/bladder incontinence, numbness in the private area, and abdominal pain. He states that he lives alone and has a home health nurse. He also adds that he takes hemp, which he notes is similar to medical marijuana. Home Medications Home Medications Medication Instructions Recorded Confirmed Type Saccharomyces boulardii 0 mg 10/08/18 History acetaminophen 650 mg PO Q8H PRN 10/08/18 10/08/18 History aspirin [Aspir-81] 81 mg PO DAILY 10/08/18 10/08/18 History atorvastatin 20 mg PO 3XWK 10/08/18 10/08/18 History calcium carbonate [Tums] 0 mg PO HS 10/08/18 10/08/18 History cholecalciferol (vitamin D3) 1,000 unit PO HS 10/08/18 10/08/18 History finasteride 5 mg PO DAILY 10/08/18 10/08/18 History meclizine 0 mg PO 10/08/18 History metoprolol tartrate 25 mg PO BID 10/08/18 10/08/18 History ondansetron 8 mg PO BID PRN 10/08/18 10/08/18 History polyethylene glycol 3350 17 g PO HS 10/08/18 10/08/18 History ranitidine HCl 300 mg PO DAILY 10/08/18 10/08/18 History sennosides [Senokot] 0 mg PO BID PRN 10/08/18 10/08/18 History topiramate 50 mg PO BID 10/08/18 10/08/18 History Allergies Allergy/AdvReac Type Severity Reaction Status Date / Time lactose AdvReac Intermediate GI UPSET Verified 08/17/18 12:14 rosuvastatin AdvReac Unknown muscle Verified 08/17/18 12:14 aches Past Med/Surg History Medical History Brain malignancy BPH (benign prostatic hyperplasia) GERD (gastroesophageal reflux disease) CAD (coronary artery disease) Pacemaker (Chronic) Acute myocardial infarction of inferior wall (Acute) Anemia (Acute) Chronic back pain Lumbar stenosis with neurogenic claudication Sciatica (Chronic) Brain malignancy BPH (benign prostatic hyperplasia) (Acute) Cardiac disease (Acute) Chronic low back pain (Acute) Diverticulosis (Acute) Esophageal reflux (Acute) Hyperlipidemia (Acute) IBS (irritable bowel syndrome) (Acute) Lumbar stenosis with neurogenic claudication (Acute) Myocardial infarction (Acute) Osteoarthritis (Acute) Pacemaker (Acute) Pacemaker (Acute) Retinal tear of right eye (Acute) SA node dysfunction (Acute) Surgical History History of back surgery (Resolved) H/O craniotomy H/O shoulder surgery (Acute) History of bilateral carpal tunnel release (Acute) History of bunionectomy of right great toe (Acute) History of cardiac cath (Acute) History of cataract surgery (Acute) History of esophagogastroduodenoscopy (Acute) History of lumbar laminectomy for spinal cord decompression (Acute) Hx laparoscopic cholecystectomy (Acute) Hx of colonoscopy (Acute) S/P LASIK surgery (Acute) S/P laser trabeculoplasty of eye (Acute) Family History Mother , 64yo;lung cancer;[place] No problems noted. Father , 57yo;[place] No problems noted. Brother No problems noted. Sister No problems noted. Daughter No problems noted. 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 and A total of 10 systems reviewed and were otherwise negative Physical Exam Vital Signs Vital Signs - 24 hr 10/08/18 15:16 10/08/18 18:38 10/08/18 21:39 Temperature 37 C Temperature Source Oral Sepsis Recent Fever Within 48 Hours No Sepsis New/Unexplained Change in Mental Status No Sepsis Action Taken by Nursing No Action Required Pulse Rate 66 Pulse Rate [Apical] 68 Pulse Rate [Left Finger] Pulse Rhythm [Left Finger] Pulse Strength [Left Finger] Respiratory Rate 18 18 Respiratory Effort / Characteristics Respiratory Depth Respiratory Pattern Blood Pressure 152/81 H 148/74 H Blood Pressure [Left Arm] Blood Pressure [Right Arm] 139/79 Blood Pressure Mean 104 Blood Pressure Mean [Left Arm] Blood Pressure Mean [Right Arm] 99 Blood Pressure Position [Left Arm] Pulse Oximetry 99 98 Oxygen Delivery Method Room Air Room Air 10/08/18 22:00 Temperature 36.4 C L Temperature Source Oral Sepsis Recent Fever Within 48 Hours Sepsis New/Unexplained Change in Mental Status Sepsis Action Taken by Nursing Pulse Rate Pulse Rate [Apical] Pulse Rate [Left Finger] 60 Pulse Rhythm [Left Finger] Regular Pulse Strength [Left Finger] Normal Respiratory Rate 18 Respiratory Effort / Characteristics Non-Labored Respiratory Depth Normal Respiratory Pattern Regular Blood Pressure Blood Pressure [Left Arm] 138/78 Blood Pressure [Right Arm] Blood Pressure Mean Blood Pressure Mean [Left Arm] 98 Blood Pressure Mean [Right Arm] Blood Pressure Position [Left Arm] Sitting Pulse Oximetry 97 Oxygen Delivery Method Room Air Constitutional: Vital signs reviewed. Eyes: Pupils are equal round reactive to light. Conjunctiva are noninjected. ENT: Pharynx is clear without erythema or exudate. Mucous membranes are moist. Neck supple without meningeal signs. Respiratory: Clear to auscultation bilaterally. Breath sounds are equal bilaterally. Cardiovascular: Regular rate and rhythm. No rubs or gallops. GI: Soft, nondistended and nontender. Bowel sounds are present. Musculoskeletal: No peripheral edema. No lower extremity tenderness. Integumentary: No cyanosis. Neurological: The patient is awake and alert. Cranial nerves II-XII are intact. Motor is 5 out of 5 all extremities. Sensation is intact to light touch all extremities. Normal speech. No pronator drift. No limb ataxia. Psychiatric: Normal affect. Course 1603: Past medical records reviewed. The patient was evaluated in room B6, and a complete history and physical examination were performed. 1750: I checked on the patient and reviewed his test results with him. The therapeutic case manager stated that the patient is unable to go to a facility [facility], so he will be admitted to medicine. 175: I reviewed the patient's case with Omayra Alcazar. Dr. Jones will evaluate the patient for further management. Consultations Consultation #1: I reviewed the patient's case with Omayra Alcazar. Dr. Jones will evaluate the patient for further management. Time: 17:51 Administered Medications Discontinued Medications Morphine Sulfate (Morphine Sulfate) 4 mg IV NOW STA Stop: 10/08/18 16:14 Last Admin: 10/08/18 16:22 Dose: 4 mg Ondansetron HCl (Zofran) 4 mg IV NOW STA Stop: 10/08/18 16:14 Last Admin: 10/08/18 16:22 Dose: 4 mg Medical Decision Making Differential Diagnosis Differential diagnosis includes intracranial hemorrhage, intracranial mass, post -surgical migraines, chronic back pain, compression fracture, ambulatory dysfunction. Medical Records Attestation: I reviewed the patient's medical records. Home Medications Current Medication List: was personally reviewed by me Laboratory Data Attestation: I reviewed the patient's lab results. Result diagrams: 10/08/18 15:20 10/08/18 15:20 Lab Results 10/08/18 10/08/18 Range/Units 15:20 15:20 WBC 4.96 (4.8-10.8) K/uL RBC 3.80 L (4.7-6.1) M/uL Hgb 12.1 L (14.0-18.0) g/dL Hct 35.7 L (42-52) % MCV 93.9 (80-100) fL MCH 31.8 (25-34) pg MCHC 33.9 (32-36) g/dL RDW Std Deviation 48.3 H (36.4-46.3) fL RDW Coeff of Lora 14.1 (11.5-14.5) % Plt Count 151 (130-400) K/uL MPV 10.5 H (7.4-10.4) fL Immature Gran % (Auto) 0.0 % Neut % (Auto) 74.6 % Lymph % (Auto) 14.7 % Gage % (Auto) 9.1 % Eos % (Auto) 1.2 % Baso % (Auto) 0.4 % Immature Gran # (Auto) 0.00 (0.00-0.02) K/uL Neut # (Auto) 3.70 (1.4-6.5) K/uL Lymph # (Auto) 0.73 L (1.2-3.4) K/uL Gage # (Auto) 0.45 (0.11-0.59) K/uL Eos # (Auto) 0.06 (0-0.5) K/uL Baso # (Auto) 0.02 (0-0.2) K/uL Sodium 141 (136-145) mmol/L Potassium 3.5 (3.5-5.1) mmol/L Chloride 108 H (98-107) mmol/L Carbon Dioxide 29 (21-32) mmol/L Anion Gap 4.0 (3-11) BUN 15 (7-18) mg/dl Creatinine 1.49 H (0.6-1.4) mg/dl Est Cr Clr Drug Dosing 39.4 ml/min Est GFR ( Amer) 52.8 Est GFR (Non-Af Amer) 45.6 BUN/Creatinine Ratio 10.2 (10-20) Glucose 89 (70-99) mg/dl Calcium 9.6 (8.5-10.1) mg/dl Total Bilirubin 0.3 (0.2-1) mg/dl Direct Bilirubin 0.1 (0-0.2) mg/dl AST 17 (15-37) U/L ALT 22 (12-78) U/L Alkaline Phosphatase 89 (45-117) U/L Total Protein 7.5 (6.4-8.2) gm/dl Albumin 3.9 (3.4-5.0) gm/dl Imaging Data Radiologist's Impression: Radiology results as stated below per my review and the radiologist's interpretation: CT head/brain wo con CT DOSE: 537.48 mGy.cm HISTORY: Trauma. Pain. Mental status change. fall eval for bleed TECHNIQUE: Multiaxial CT images of the head were performed without the use of intravenous contrast. A dose lowering technique was utilized adhering to the principles of ALARA. Comparison: 05/11/2018 Findings: Interval right frontotemporal craniotomy. Craniotomy flap appears to be aligned appropriately Small amount of residual high density components within the right temporal lobe. Postoperative encephalomalacia is present. Mild dural thickening deep to the craniotomy flap considered nonacute. Anterior system is now midline. No significant midline shift. Mild reactive vasogenic edema on a postoperative basis is present. No acute intracranial hemorrhage. Impression: 1. Postoperative changes consistent with a partial right temporal lobe mass resection and craniotomy. 2. Moderate residual high density components within the operative field unchanged to slightly improved from the prior study. 3. No acute process is identified. The above report was generated using voice recognition software. It may contain grammatical, syntax or spelling errors. Electronically signed by: Wilver Marr M.D. 10/08/2018 5:[address] lumbar spine wo con HISTORY: 73 years-old Male fall eval for fx acute posttraumatic low back pain COMPARISON: Lumbar spine CT 10/03/2017, lumbar spine fluoroscopic images 2017 TECHNIQUE: Multiple axial CT images of the lumbar spine were obtained without the use of contrast. A dose lowering technique was used consistent with the principals of CHERIE. FINDINGS: Extensive postoperative changes of the lumbar spine redemonstrated. Prior laminectomy at L2-L5 with posterior interbody fabián and screw fusion. Bilateral iliac bolts are noted with pedicle screws on the right at L4-S1. Pedicle screws in the left are seen at L5 and S1. Minimal lucency surrounds the bilateral S1 pedicle screws. Prior hardware removal at the L2 and L3 levels. Partial bony fusion of the vertebral bodies extending from L2-L5. Multilevel posterior spondylitic spurring with posterior disc osteophyte complex formations seen most notably at L1-L2 and L2-L3. Multilevel facet arthrosis. 23 degrees dextroscoliosis measured from L2-L4. No acute fracture or subluxation identified. Multilevel endplate degenerative changes. Evaluation of the central canal and neuroforamina is better assessed by MRI. No significant change identified involving the central canal or neuroforaminal from comparison study dated 10/03/2017. Extensive calcification of the abdominal aorta and iliac arteries with infrarenal ectasia measuring up to 2.7 cm on image 142 series 5. Partially imaged wall thickening of the urinary bladder lumen. No adenopathy. IMPRESSION: 1. No acute fracture or subluxation. 2. Extensive postoperative changes of the lumbar spine as detailed above. Minimal lucency surrounding the bilateral S1 pedicle screws may reflect associated hardware loosening. 3. Dextroscoliosis. The above report was generated using voice recognition software. It may contain grammatical, syntax or spelling errors. Electronically signed by: Nomi Nance M.D. 10/08/2018 5:25 PM Blood Pressure Blood Pressure Findings: Elevated blood pressure Blood Pressure Disposition: Referred to patients primary care provider ODETTE Chow I did perform a limited focused review of portions of the patient's old chart on the electronic medical record. The patient is followed by oncology, who last saw him on September 09, 2018. The patient completed radiation therapy on September 02, 2018, and was noted to have headaches throughout his treatment time. The patient is on chronic pain medication for low back pain and was seen by [facility] for recommendations on pain management. I did evaluate the patient as noted above. Patient is presenting with chronic headaches and back pain. His back pain is worse since he has been falling. He states he feels very unsteady and he lives by himself. He does not have a home health nurse although they are working on it. IV access was established. The patient was placed on a continuous hospital monitor. I did treat the patient with IV morphine and Zofran. I did order and review the patient's blood work as noted in the electronic medical record. His creatinine is at baseline. He has chronic anemia. I did order a CT of the head and lumbar spine. I did review the images myself as well as the radiology report as described above. There is no evidence of intracranial hemorrhage. No evidence of fracture or dislocation in the lumbar spine. The patient did attempt to go to the bathroom. He is extremely unsteady on his feet and quite assistance. At this time he is not safe to be discharged home. I did speak to the therapeutic case manager who stated that he would be unable to be placed at this time and would require hospitalization. I did discuss the case with the hospitalist. Impression & Plan Ambulatory dysfunction, Frequent falls, Acute exacerbation of chronic low back pain, Chronic headache Discharge Plan Visit Data *Final* Discharge Date/Time: 10/08/18 21:39 Chief Complaint: Back Injury/Pain ED Provider: Ryan Esqueda Discharge Problem: Ambulatory dysfunction, Frequent falls, Acute exacerbation of chronic low back pain, Chronic headache Patient Disposition: Admitted As Inpatient Discharge Instructions Interventions: ED Discharge Assessment Last Done: 10/08/18 21:39 The terry's documentation has been prepared under my direction and personally reviewed by me in its entirety. I confirm that the note above accurately reflects all work, treatment, procedures, and medical decision making performed by me.
[2018-10-09] MEDS: METOPROLOL TARTRATE 25 MG TAB PO SCH ×3 (00:21→20:45)
[2018-10-09] MEDS: POLYETHYLENE (MIRALAX) 17 GM PACK PO SCH ×2 (00:21→20:45)
[2018-10-09] MEDS: TOPIRAMATE 50 MG TAB PO SCH ×3 (00:22→19:34)
[2018-10-09] MEDS: CHOLECALCIFEROL 1,000 UNITS TAB PO SCH ×2 (00:22→20:45)
[2018-10-09] MEDS: CALCIUM CARBONATE 500 MG CHEWABLE TAB PO SCH ×2 (00:22→20:45)
[2018-10-09 05:43] LABS: Prothrombin Time 10.4 Seconds (9.0-12.0)
[2018-10-09] MEDS: ASPIRIN 81 MG ECTAB PO SCH (08:31)
[2018-10-09] MEDS: FINASTERIDE 5 MG TAB PO SCH (08:31)
[2018-10-09] MEDS ORDERED: ATORVASTATIN 20 MG TAB PO SCH (09:00)
[2018-10-09] MEDS: ENOXAPARIN INJ 40 MG/0.4 ML SYR SQ SCH (10:21)
[2018-10-09] MEDS ORDERED: OXYCODONE/ACETAMINOPHEN 5mg/325mg TAB ONE (10:50)
[2018-10-09] MEDS: NICOTINE 14 MG/24 HR PATCH TD SCH (14:25)
[2018-10-09] MEDS ORDERED: Nursing to Pharmacy Communication ONE (18:11)
--- NOTE | 2018-10-09 18:18 | Family Medicine Progress Note ---
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 Postoperative changes consistent with a partial right temporal lobe mass resection and craniotomy. 2. Moderate residual high density components within the operative field unchanged to slightly improved from the prior study. 3. No acute process is identified. - CT Lumbar Spine 1. No acute fracture or subluxation. 2. Extensive postoperative changes of the lumbar spine as detailed above. Minimal lucency surrounding the bilateral S1 pedicle screws may reflect associated hardware loosening. 3. Dextroscoliosis. - PT/OT - Awaiting recommendation - Case Management - No beds available at [facility] can accept the patient tomorrow (2) Brain malignancy: - S/p resection, radiation, and chemotherapy for Anaplastic Oligodendroglioma - Not undergoing radiation at this time - Following with Heme/Onc (3) BPH (benign prostatic hyperplasia): - Continue home Flomax (4) CAD (coronary artery disease): - Continue home Aspirin, Atorvastatin, and Metoprolol (5) GERD (gastroesophageal reflux disease): - Continue home Ranitide (6) Chronic headache: - Continue home Tylenol (7) Chronic back pain: - Continue home Percocet 5/325mg PO BID PRN for pain Supervising Physician Co-Signing Physician Notes ATTENDING NOTE I saw the patient with the resident physician and confirmed valencia portions of the history and exam. I agree with the impression and plan as documented. Will consult PT/OT to determine best course. I suspect inpatient rehabilitation will provide him the safest recovery and best chance at return to independent living. Subjective Patient resting comfortably in bed with no acute distress. States that he has had 3 falls over the last few months where he gets dizzy and loses his balance. He came to the ED because of concern for pain from his most recent fall where he fell on his back in addition to injury of his knees bilaterally. He states that these symptoms have been persistent since his brain radiation in August. He initially had sugical excision of the brain tumor in June. He also complains of nausea and headache. Review of Systems See HPI for pertinent positives and negatives. A total of ten systems were reviewed and were otherwise negative. Physical Exam 2 Vital Signs (Past 24 Hours): Last Vital Signs Temp 36.8 C 10/09/18 16:00 Pulse 59 L 10/09/18 16:00 Resp 18 10/09/18 16:00 BP 119/67 10/09/18 16:00 Pulse Ox 98 10/09/18 16:00 GENERAL: Awake, al ert, in no distres s HENT: Normocepha lic, atraumatic. O ropharynx unremark able. EYES: Normal conjunctiva. Scle ra non-icteric. NE CK: Supple. No nuc isha rigidity. RES PIRATORY: Clear to auscultation. CAR DIAC: Regular rate , normal rhythm. E xtremities warm an d well perfused. P ulses equal. ABDOM EN: Soft, non-dist ended. No tenderne ss to palpation. RECTAL: Deferred. MUSCULOSKELETAL: C hest examination r eveals no tenderne ss. The back is sy mmetrical on inspe ction without obvi ous abnormality. LOWER EXTREMITIES: Calves are equal size bilaterally a nd non-tender. No edema. No discolor ation. NEURO: Nor mal sensorium. No sensory or motor d eficits noted. SK IN: No rash or jau ndice noted. Resident Activity Tracking Resident Involvement: Resident Care Provided Care Provided: [facility] Medicine _ (1) Brain malignancy Malignant neoplasm of brain location: temporal lobe Qualified Code(s): C71.2 - Malignant neoplasm of temporal lobe (2) Chronic headache Headache type: unspecified Intractability: intractable Qualified Code(s): R51 - Headache (3) CAD (coronary artery disease) Associated angina: without angina Coronary Disease-Associated Artery/Lesion type: ambler artery [place] vs. transplanted heart: ambler heart Qualified Code (s): I25.10 - Atherosclerotic heart disease of ambler coronary artery without angina pectoris (4) GERD (gastroesophageal reflux disease) Esophagitis presence: esophagitis presence not specified Qualified Code(s): K21.9 - Gastro-esophageal reflux disease without esophagitis
[2018-10-09] MEDS: ACETAMINOPHEN 325 MG TAB PO PRN (19:36)
[2018-10-09] MEDS: OXYCODONE/ACETAMINOPHEN 5mg/325mg TAB PO PRN (20:53)
[2018-10-10] MEDS: ACETAMINOPHEN 325 MG TAB PO PRN ×2 (08:16→18:31)
[2018-10-10] MEDS: FINASTERIDE 5 MG TAB PO SCH (08:16)
[2018-10-10] MEDS: NICOTINE 14 MG/24 HR PATCH TD SCH (08:17)
[2018-10-10] MEDS: ENOXAPARIN INJ 40 MG/0.4 ML SYR SQ SCH (08:17)
[2018-10-10] MEDS: ASPIRIN 81 MG ECTAB PO SCH (08:17)
[2018-10-10] MEDS: TOPIRAMATE 50 MG TAB PO SCH ×2 (08:17→20:31)
[2018-10-10] MEDS: METOPROLOL TARTRATE 25 MG TAB PO SCH ×2 (08:17→20:31)
[2018-10-10] MEDS: OXYCODONE/ACETAMINOPHEN 5mg/325mg TAB PO PRN (10:58)
--- NOTE | 2018-10-10 15:30 | Family Medicine Progress Note ---
Date of Service October 10, 2018 Assessment & Plan (1) Frequent falls: Mr. 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 Patient's this past April and he has been having a difficult time at home. He was subsequently diagnosed with brain cancer, had craniotomy with removal of tumor and radiation therapy. He has been having more frequent falls at home and difficulty keeping up with daily activities. (1) Frequent falls: - Secondary to history of brain tumor (anaplastic oligodendrolgioma) resection with chemo/radiation - No acute injuries secondary to fall - CT Head: 1. Postoperative changes consistent with a partial right temporal lobe mass resection and craniotomy. 2. Moderate residual high density components within the operative field unchanged to slightly improved from the prior study. 3. No acute process is identified. - CT Lumbar Spine 1. No acute fracture or subluxation. 2. Extensive postoperative changes of the lumbar spine as detailed above. Minimal lucency surrounding the bilateral S1 pedicle screws may reflect associated hardware loosening. 3. Dextroscoliosis. - PT/OT - Recommend rehab facility - Case Management - Patient awaiting [facility] authorization (2) Brain malignancy: - S/p resection, radiation, and chemotherapy for Anaplastic Oligodendroglioma - Not undergoing radiation at this radha - Following with Heme/Onc (3) BPH (benign prostatic hyperplasia): - Continue home Flomax (4) CAD (coronary artery disease): - Continue home Aspirin, Atorvastatin, and Metoprolol (5) GERD (gastroesophageal reflux disease): - Continue home Ranitide (6) Chronic headache: - Continue home Tylenol (7) Chronic back pain: - Continue home Percocet 5/325mg PO BID PRN for pain DVT prophylaxis - lovenox subq Dispo - pending discharge to [facility] Supervising Physician Co-Signing Physician Notes ATTENDING NOTE I saw the patient with the resident physician and confirmed valencia portions of the history and exam. I agree with the impression and plan as documented. Physical therapy recommendation is for inpatient rehabilitation and the patient is agreeable Insurance authorization is pending for [facility] He is medically stable for discharge pending bed availability and authorization Subjective Patient appeared comfortable resting in bed. He notes that he was worried about the location of his home percocet pills as he had a lot of trouble getting these prescribed. I reiterated to him that they were being held in a safe. He notes his pain has been adequately controlled while here in the hospital. He has agreed to go to a SNF and is eager to leave the hospital. I told him we are still waiting for SNF authorization. He denied any chest pain, palpitations, shortness of breath, ab pain, diarrhea, constipation, dysuria. He did note that he still has a mild headache and back pain from his fall Physical Exam 2 Vital Signs (Past 24 Hours): Last Vital Signs Temp 36.7 C 10/10/18 12:00 Pulse 60 10/10/18 12:00 Resp 20 10/10/18 12:00 BP 111/70 10/10/18 12:00 Pulse Ox 98 10/10/18 12:00 Constitutional: WD/WN, vitals as above no acute distress Eyes: PERRL, conjunctivae normal, anicteric sclerae Neck: trachea midline, no thyromegaly Respiratory: normal respiratory effort, lungs clear to auscultation Cardiovascular: RRR, no murmur, no edema Gastrointestinal (Abdomen): normal bowel sounds, soft, nontender, no hepatosplenomegaly Musculoskeletal: no cyanosis or clubbing, extremities motor strength 5/5 Psychiatric: Orientation: oriented x 3 Mood: + depressed mood
[2018-10-10] MEDS: CHOLECALCIFEROL 1,000 UNITS TAB PO SCH (20:32)
[2018-10-10] MEDS: CALCIUM CARBONATE 500 MG CHEWABLE TAB PO SCH (20:32)
[2018-10-10] MEDS: POLYETHYLENE (MIRALAX) 17 GM PACK PO SCH (20:33)
[2018-10-11 05:50] LABS: Hematocrit (blood only) 37.9 % (42-52); Hemoglobin 12.8 g/dL (14.0-18.0); Mean Corpuscular Hgb Conc 33.8 g/dL (32-36); Mean Corpuscular Volume 93.3 fL (80-100); Mean Platelet Volume 10.4 fL (7.4-10.4); Platelet Count 137 K/uL (130-400); RDW Coefficient of Variation 14.1 % (11.5-14.5); RDW Standard Deviation 48.2 fL (36.4-46.3); Red Blood Count 4.06 M/uL (4.7-6.1); White Blood Count 4.39 K/uL (4.8-10.8)
[2018-10-11 06:16] LABS: Creatinine Clr Calc Pharmacy 41.9 ml/min; Est GFR (African American) 60.1; Est GFR (Non-African American) 51.8
--- NOTE | 2018-10-11 07:32 | Discharge Summary ---
Date of Service October 11, 2018 Admission HPI Per Admitting Provider Mr. 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 Patient's this past April and he has been having a difficult time at home. He was subsequently diagnosed with brain cancer, had craniotomy with removal of tumor and radiation therapy. He has been having more frequent falls at home and difficulty keeping up with daily activities. ER Course: Morphine, Zofran Principal Diagnosis Recurrent falls and inability to perform ADLs secondary to recent brain cancer surgery and radiation Discharge Exam Constitutional: WD/WN, vitals as above no acute distress Eyes: PERRL, conjunctivae normal, anicteric sclerae Neck: trachea midline, no thyromegaly Respiratory: normal respiratory effort, lungs clear to auscultation Cardiovascular: RRR, no murmur, no edema Gastrointestinal (Abdomen): normal bowel sounds, soft, nontender, no hepatosplenomegaly Musculoskeletal: no cyanosis or clubbing, extremities motor strength 5/5 Psychiatric: Orientation: oriented x 3 Mood: + depressed mood Discharge Data Allergies Allergy/AdvReac Type Severity Reaction Status Date / Time lactose AdvReac Intermediate GI UPSET Verified 08/17/18 12:14 rosuvastatin AdvReac Unknown muscle Verified 08/17/18 12:14 aches Consultations 10/08/18 17:55 ED Decision to Admit Stat 10/08/18 22:10 Consult Case Management - Discharge Planning Routine Ordered Studies 10/08/18 16:13 CT head/brain wo con Stat CT lumbar spine wo con Stat Hospital Course (1) Frequent falls: Mr. 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 Patient's this past April and he has been having a difficult time at home. He was subsequently diagnosed with brain cancer, had craniotomy with removal of tumor and radiation therapy. He has been having more frequent falls at home and difficulty keeping up with daily activities. (1) Frequent falls: - Secondary to history of brain tumor (anaplastic oligodendrolgioma) resection with chemo/radiation - No acute injuries secondary to fall - CT Head: 1. Postoperative changes consistent with a partial right temporal lobe mass resection and craniotomy. 2. Moderate residual high density components within the operative field unchanged to slightly improved from the prior study. 3. No acute process is identified. - CT Lumbar Spine 1. No acute fracture or subluxation. 2. Extensive postoperative changes of the lumbar spine as detailed above. Minimal lucency surrounding the bilateral S1 pedicle screws may reflect associated hardware loosening. 3. Dextroscoliosis. - PT/OT - Recommend rehab facility - Case Management - Patient cleared for [facility] (2) Brain malignancy: - S/p resection, radiation, and chemotherapy for Anaplastic Oligodendroglioma - Not undergoing radiation at this time - Following with Heme/Onc (3) BPH (benign prostatic hyperplasia): - Continue home Flomax (4) CAD (coronary artery disease): - Continue home Aspirin, Atorvastatin, and Metoprolol (5) GERD (gastroesophageal reflux disease): - Continue home Ranitide (6) Chronic headache: - Continue home Tylenol (7) Chronic back pain: - Continue home Percocet 5/325mg PO BID PRN for pain Total Time Total Time Spent Total Time Spent (In Minutes): 30 Discharge Plan Discharge Items Patient Disposition: Transfer Detention Fac Reason For Visit: AMBULATORY DYSFUNCTION Discharge Diagnosis: Recurrent falls Discharge Goals: Improve function and Increase independence Activity: Resume your previous activity Non-emergency contact: Primary Care Provider Call non-emergency contact if: your symptoms worsen Diet: Regular Addtl Provider Instructions: You came to the hospital secondary to recurrent falls, headaches and back pain. Imaging of your head and back did not show any fractures or bleeding. Do to your recurrent falls we decided it would be best to transfer you to [facility] for further rehab and care Prescriptions: New oxycodone-acetaminophen [Percocet] 5-325 mg tablet 1 tab PO BID Qty: 30 RF: 0 Continue atorvastatin 40 mg tablet 20 mg PO 3XWK RF: 0 sennosides [Senokot] 8.6 mg Tablet PO BID PRN (Reason: Unknown) RF: 0 polyethylene glycol 3350 17 gram Powder In Packet 17 g PO HS RF: 0 ranitidine HCl 300 mg Tablet 300 mg PO DAILY RF: 0 meclizine 12.5 mg Tablet PO RF: 0 aspirin [Aspir-81] 81 mg Tablet,Delayed Release (Dr/Ec) 81 mg PO DAILY RF: 0 ondansetron 8 mg Tablet,Disintegrating 8 mg PO BID PRN (Reason: Unknown) RF: 0 acetaminophen 650 mg Tablet Extended Release 650 mg PO Q8H PRN (Reason: Pain) RF: 0 calcium carbonate [Tums] 200 mg calcium (500 mg) Tablet,Chewable PO HS RF: 0 finasteride 5 mg tablet 5 mg PO DAILY RF: 0 Saccharomyces boulardii 250 mg Capsule RF: 0 metoprolol tartrate 25 mg Tablet 25 mg PO BID RF: 0 topiramate 50 mg tablet 50 mg PO BID RF: 0 cholecalciferol (vitamin D3) 1,000 unit Tablet 1,000 unit PO HS RF: 0 Stand-Alone Forms: [facility] Discharge Orders: Discharge Order (Routine); Ordered 10/11/18 Ordered By: Justino Ashley Skilled Items Patient informed of condition?: Yes DNR: Yes Discharge Level of Care: Skilled Communicable Disease: No Discharge Prognosis: Stable Admission Data Admit Date/Time: 10/08/18 20:22 Attending Provider: Jed Rey Admit Provider: Amanda Jones Primary Care Provider: Peter Menezes Other Providers: Amanda Jones Service: Medical Other Interventions: Discharge Summary Assessment (RN) Last Done: 10/11/18 01:03 DC Date/Time DO NOT enter until pt leaves facility: 10/11/18 11:01 Supervising Physician Co-Signing Physician Notes ATTENDING NOTE I saw the patient with the resident physician and confirmed valencia portions of the history and exam. I agree with the impression and plan as noted in the discharge augmentation. Patient's sister will transport him home for some clothing and then take him to [facility] for admission. With some physical therapy and stabilization of his gait it is hopeful that he will be able to return home and independent living.
[2018-10-11 07:54] VITALS: BP 119/67; PULSE 60; TEMP 97.7; O2SAT 98
[2018-10-11] MEDS: FINASTERIDE 5 MG TAB PO SCH (08:28)
[2018-10-11] MEDS: ASPIRIN 81 MG ECTAB PO SCH (08:28)
[2018-10-11] MEDS: TOPIRAMATE 50 MG TAB PO SCH (08:28)
[2018-10-11] MEDS: METOPROLOL TARTRATE 25 MG TAB PO SCH (08:28)
== END 2018-10-11 11:01 ==
LOC: 4E 15:09 → ED 15:09 → SUATTDRO 20:22 → 4E 21:39